=== PATIENT | female | born 1965 | race Caucasian/White ===

== ENCOUNTER → 2016-08-09 | Outpatient (CLI) | payer OTHER ==
--- NOTE | 2016-08-09 10:34 | CT ---
EXAMINATION TYPE: CT chest w con DATE OF EXAM: 08/09/2016 10:21 AM COMPARISON: Chest CT November 30, 2015. Older chest CT back to March 16, 2015. HISTORY: Pulmonary nodules CT DLP: 203.5 mGycm. Automated Exposure Control for Dose Reduction was Utilized. TECHNIQUE: CT scan of the thorax is performed following with IV Contrast, patient injected with 100 ml mL of Omnipaque 300. FINDINGS: LUNGS: There is background of mild underlying emphysematous change redemonstrated. There is no pleura l effusion or pneumothorax seen bilaterally. No concerning new parenchymal nodule or mass is present bilaterally. There is stable 7 x 4 mm groundglass nodule right midlung anteriorly on axial image 38. Smaller nodules seen on prior studies are not clearly identified on current study. No suspicious nodu le on original study right midlung now shows residual linear scarlike opacity on axial image 26 with continued diminished prominence from prior exams. MEDIASTINUM: There are no greater than 1 cm hilar or mediastinal lymph nodes. No pericardial effusi on is seen. There is 4 vessel origin from aortic arch which is normal variant. OTHER: There is 1.7 cm splenule in the inferior splenic hilum on axial image 57. IMPRESSION: Mild emphysematous change with no new or growing nodules identified. Findings are almost certainly postinflammatory in etiology given stability since February 2015.
== END | disposition home or self-care (01) ==
LOC: RADCTMAIN 09:52
PROVIDERS: ATTEND Internal Medicine Critical Care Medicine
DX: J43.9 Emphysema, unspecified (principal); R91.8 Other nonspecific abnormal finding of lung field; Z88.2 Allergy status to sulfonamides
CPT/HCPCS: 71260; Q9967

== ENCOUNTER → 2017-01-30 | Outpatient (CLI) | payer OTHER ==
--- NOTE | 2017-01-30 14:02 | BD ---
EXAMINATION TYPE: MG DEXA axial skeleton. DATE OF EXAM: 01/30/2017 CLINICAL HISTORY: Height: 63 inches Weight: 146 pounds FRAX RISK QUESTIONS: Alcohol (3 or more units per day): no Family History (Parent hip fracture): no Glucocorticoids (More than 3mos): no (Ex: prednisone, prednisolone, methylprednisolone, dexamethasone, and hydrocortisone). History of Fracture in Adulthood: no Secondary Osteoporosis: 1. Type 1 Diabetes: no 2. Hyperthyroidism: unsure 3. Menopause before 45: no 4. Malnutrition: no 5. Chronic liver disease: no Rheumatoid Arthritis: no Current Tobacco Use: yes RISK FACTORS HISTORY OF: Family History of Osteoporosis: no, mother has osteopenia Active: yes Diet low in dairy products/other sources of calcium: no Postmenopausal woman: yes Take estrogen and/or progesterone medications: no Lost more than 2 inches in height since high school: no Frequent falls: no Poor Health: no Hyperparathyroidism: no Adrenal Insufficiency: no MEDICATIONS: Prednisone or other steroids: no Thyroid Medications: yes Which medication: unsure How Long: about 3 months Osteoporosis Medications: no Additional Medications: calcium & Vitamin D Additional History: auto-immune thyroid disease EXAM MEASUREMENTS: Bone mineral densitometry was performed using the [employer] System. Bone mineral density as measured about the Lumbar spine is: ----- L1-L4(G/cm2): 1.101 T Score Values are as follows: ----- L2: -1.3 ----- L3: -0.8 ----- L4: -0.4 ----- L1-L4: -0.7 Bone mineral density has: Decreased -3.0% since study of: 09/16/2014 Bone mineral density about the R hip (g/cm2): 0.823 Bone mineral density about the L hip (g/cm2): 0.872 T Score values are as follows: -----R Neck: -1.5 -----L Neck: -1.2 -----R Total: -1.2 -----L Total: -0.6 Bone mineral density has: Decreased -3.1% since study of: 09/16/2014 IMPRESSION: Osteopenia (T Score between -2.5 and -1 as noted by T score values There is slightly increased risk of fracture and the patient may be considered for treatment. Re-Screen 2-5 years. NOTE: T-SCORE=SD OF THE YOUNG ADULT MEAN.
--- NOTE | 2017-02-01 07:25 | MM ---
Reason for exam: screening (asymptomatic). Last mammogram was performed 1 year and 3 months ago. History: Patient is postmenopausal. Family history of breast cancer in mother at age 38. Benign ultrasound-guided FNA biopsy of the right breast, March 15, 2007. Benign US right guided mammotome of the right breast, March 15, 2007. Benign US right core biopsy of the right breast, March 15, 2007. Benign US right guided mammotome of the right breast, September 15, 2005. Benign cyst aspiration of the right breast, August 05, 2004. Benign ultrasound-guided cyst aspiration of the right breast, August 05, 2004. Excisional biopsy of the right breast, 1995. Benign excisional biopsy of the right breast, 1993. Cyst aspiration of the right breast. Physical Findings: A clinical breast exam by your physician is recommended on an annual basis and results should be correlated with mammographic findings. MG 3D Screening Mammo W/Cad Bilateral CC and MLO view(s) were taken. Prior study comparison: October 25, 2015, bilateral MG 3d screening mammo w/cad. September 16, 2014, bilateral MG screening mammo w CAD. June 17, 2013, bilateral digital screening mammo w/CAD. There are scattered fibroglandular densities. Previous mammotome biopsy within the right breast x3. There is chronic nodularity bilaterally. A nodule in the central left breast is unchanged from 2016. ASSESSMENT: Benign, BI-RAD 2 RECOMMENDATION: Routine screening mammogram of both breasts in 1 year.
== END | disposition home or self-care (01) ==
LOC: RADMAMWWP 12:02
PROVIDERS: ATTEND Obstetrics & Gynecology
DX: Z12.31 Encounter for screening mammogram for malignant neoplasm of breast (principal); M85.80 Other specified disorders of bone density and structure, unspecified site
CPT/HCPCS: 77080; 77063; G0202

== ENCOUNTER → 2017-03-12 | Outpatient (CLI) | payer OTHER ==
--- NOTE | 2017-03-13 11:10 | NM ---
EXAMINATION TYPE: NM thyroid image w uptake DATE OF EXAM: 03/13/2017 COMPARISON: NONE HISTORY: 51-year-old female with hyperthyroidism TECHNIQUE: Thyroid iodine uptake is calculated and images performed after the oral administration of 318 uCi 1-123 Capsule. FINDINGS: There is normal but homogeneously increased distribution of activity throughout the gland. The 4 hour iodine uptake is calculated at 22.7% (normal range 8-14%). The 24-hour iodine uptake is calculated at 48.2% (normal range 15-35%). IMPRESSION: Diffuse increased uptake within the gland with moderately increased iodine uptake values. Correlate f or Graves' disease.
== END | disposition home or self-care (01) ==
LOC: RADNMMAIN 08:43
PROVIDERS: ATTEND Family Medicine
DX: E05.90 Thyrotoxicosis, unspecified without thyrotoxic crisis or storm (principal)
CPT/HCPCS: 78014; A9516

== ENCOUNTER → 2018-08-30 | Outpatient (CLI) | payer OTHER ==
--- NOTE | 2018-09-02 09:35 | MM ---
Reason for exam: screening (asymptomatic). Last mammogram was performed 1 year and 7 months ago. History: Patient is postmenopausal. Family history of breast cancer in mother at age 38. Benign ultrasound-guided FNA biopsy of the right breast, March 15, 2007. Benign US right guided mammotome of the right breast, March 15, 2007. Benign US right core biopsy of the right breast, March 15, 2007. Benign US right guided mammotome of the right breast, September 15, 2005. Benign cyst aspiration of the right breast, August 05, 2004. Benign ultrasound-guided cyst aspiration of the right breast, August 05, 2004. Excisional biopsy of the right breast, 1995. Benign excisional biopsy of the right breast, 1993. Cyst aspiration of the right breast. Physical Findings: A clinical breast exam by your physician is recommended on an annual basis and results should be correlated with mammographic findings. MG 3D Screening Mammo W/Cad Bilateral CC and MLO view(s) were taken. Prior study comparison: January 30, 2017, bilateral MG 3d screening mammo w/cad. October 25, 2015, bilateral MG 3d screening mammo w/cad. The breast tissue is heterogeneously dense. This may lower the sensitivity of mammography. Stable benign calcifications. Stable right sided nodularity. No significant changes when compared with prior studies. ASSESSMENT: Benign, BI-RAD 2 RECOMMENDATION: Routine screening mammogram of both breasts in 1 year.
== END ==
LOC: RADMAMWWP 14:40
PROVIDERS: ATTEND Obstetrics & Gynecology
DX: Z12.31 Encounter for screening mammogram for malignant neoplasm of breast (principal)
CPT/HCPCS: 77063; 77067

== ENCOUNTER 2018-11-18 15:06 | Inpatient (IN) | payer BC, OTHER ==
[2018-11-18] MEDS ORDERED: HEPARIN SODIUM,PORCINE 5,000 UNIT/ML 1 ML VIAL IV PRN (15:24)
[2018-11-18] MEDS ORDERED: NITROGLYCERIN SL TABS 0.4 MG TAB SUBLINGUAL PRN ×2 (15:24→16:29)
[2018-11-18] MEDS ORDERED: SODIUM CHLORIDE 0.9% 1,000 ML IV STA (15:24)
[2018-11-18] MEDS ORDERED: MORPHINE SULFATE 4 MG/ML SYRINGE IV PRN (15:24)
[2018-11-18] MEDS ORDERED: HEPARIN SODIUM,PORCINE 5,000 UNIT/ML 1 ML VIAL IV ONE (15:24)
[2018-11-18] MEDS ORDERED: ASPIRIN 81 MG PO STA (15:24)
[2018-11-18] MEDS ORDERED: ATORVASTATIN 80 MG TAB PO STA (15:29)
--- NOTE | 2018-11-18 15:29 | ED ---
Chest Pain HPI - General Chief Complaint: Chest Pain Stated Complaint: Shaking, legs going out Time Seen by Provider: 11/18/18 15:17 Source: patient, RN notes reviewed, old records reviewed Mode of arrival: ambulatory Limitations: no limitations - History of Present Illness Initial Comments: This is a 53-year-old female the ER for evaluation. Patient does say for evaluation significant chest pain anterior heaviness and shortness of breath> Starting about 15 minutes prior to arrival. Patient's complaining of chest pain. Patient is anterior chest pain heaviness, patient resents ER with similar complaints. History family history as well as smoker herself. MD Complaint: chest pain Pain Location: substernal, left chest Severity: moderate Severity scale (1-10): 6 Quality: heaviness Consistency: constant Improves With: nothing Worsens With: nothing Anginal Symptoms: nausea, diaphoresis, dyspnea, sense of impending doom Other Symptoms: palpitations Treatments Prior to Arrival: none - Related Data Allergies Allergy/AdvReac Type Severity Reaction Status Date / Time Sulfa (Sulfonamide Allergy Rash/Hives Verified 11/18/18 15:15 Antibiotics) Review of Systems ROS Statement: Those systems with pertinent positive or pertinent negative responses have been documented in the HPI. ROS Other: All systems not noted in ROS Statement are negative. EKG Findings - EKG Comments: EKG Findings:: EKG shows positive ST elevation OH, inferior Past Medical History Past Medical History: COPD Additional Past Medical History / Comment(s): graves History of Any Multi-Drug Resistant Organisms: None Reported Past Surgical History: Bladder Surgery, Hysterectomy, Tubal Ligation Past Psychological History: No Psychological Hx Reported Smoking Status: Current every day smoker Past Alcohol Use History: None Reported Past Drug Use History: None Reported General Exam Limitations: no limitations General appearance: alert, in no apparent distress, anxious, in distress Head exam: Present: atraumatic, normocephalic, normal inspection Eye exam: Present: normal appearance, PERRL, EOMI. Absent: scleral icterus, conjunctival injection, periorbital swelling ENT exam: Present: normal exam, mucous membranes moist Neck exam: Present: normal inspection. Absent: tenderness, meningismus, lymphadenopathy Respiratory exam: Present: normal lung sounds bilaterally. Absent: respiratory distress, wheezes, rales, rhonchi, stridor Cardiovascular Exam: Present: regular rate, normal rhythm, normal heart sounds. Absent: systolic murmur, diastolic murmur, rubs, gallop, clicks GI/Abdominal exam: Present: soft, normal bowel sounds. Absent: distended, ten derness, guarding, rebound, rigid Extremities exam: Present: normal inspection, full ROM, normal capillary refill. Absent: tenderness, pedal edema, joint swelling, calf tenderness Back exam: Present: normal inspection Neurological exam: Present: alert, oriented X3, CN II-XII intact Psychiatric exam: Present: normal affect, normal mood Skin exam: Present: warm, dry, intact, normal color. Absent: rash Course Vital Signs 11/18/18 15:11 Temperature 98.7 F Pulse Rate 68 Respiratory 18 Rate Blood Pressure 130/71 O2 Sat by Pulse 99 Oximetry - Reevaluation(s) Reevaluation #1: 11/18/18 15:27 Medical record is reviewed Reevaluation #2: 11/18/18 15:27 Attending Engineering Vice President page, evaluating patient emergency department Chest Pain MDM - MDM 50 female female the ER for evaluation history of family history of heart disease and stents, patient smoker, patient has positive STEMI and EKG will admit for cardiology evaluation Critical Care Time Critical Care Time: Yes Total Critical Care Time: 31 Disposition Clinical Impression: Chest pain, ST elevation myocardial infarction (STEMI) Disposition: ADMITTED IP TO THIS HOSP Condition: Serious Is patient prescribed a controlled substance at d/c from ED?: No Referrals: Joaquin Schwab DO [Primary Care Provider] - 1-2 days
[2018-11-18] MEDS ORDERED: HEPARIN SOD,PORK IN 0.45% NACL 25,000 UNIT in 0.45% NACL 1 250ML.BAG IV SCH (15:30)
[2018-11-18] MEDS ORDERED: LIDOCAINE 1% INJ 10MG/ML (20 ML MDV) ONE ×2 (15:32→15:54)
[2018-11-18] MEDS ORDERED: IV FLUID CONTINUATION 1,000 ML IV ONE (15:35)
[2018-11-18 15:42] LABS: Basophils % (A) 0 %; Eosinophils # (A) 0.1 k/uL (0-0.7); Eosinophils % (A) 1 %; HCT 41.1 % (34.0-46.0); HGB 13.5 gm/dL (11.4-16.0); Lymphocytes % (A) 12 %; MCH 29.4 pg (25.0-35.0); MCHC 32.9 g/dL (31.0-37.0); MCV 89.4 fL (80.0-100.0); Mean Platelet Volume 6.9; Monocytes # (A) 0.2 k/uL (0-1.0); Monocytes % (A) 3 %; Neutrophils % (A) 82 %; Platelet Count 245 k/uL (150-450); RDW 12.8 % (11.5-15.5); WBC 8.5 k/uL (3.8-10.6)
[2018-11-18] MEDS ORDERED: LIDOCAINE 1% INJ 10MG/ML (20 ML MDV) SQ ONE (15:47)
--- NOTE | 2018-11-18 15:48 | XR ---
EXAMINATION TYPE: XR chest 1V portable DATE OF EXAM: 11/18/2018 Comparison: 03/04/2018 Clinical History: 53-year-old female with chest pain Findings: Heart is normal size. Aorta and pulmonary vasculature within normal limits. Hazy lower lung densities related to overlying soft tissue. No consolidation or pleural effusion. Impression: No definite acute cardiopulmonary process.
[2018-11-18 15:52] LABS: ALT 11 U/L (9-52); AST 20 U/L (14-36); African American GFR (CKD) >90 (>60 ml/min/1.73 sqM); Albumin 4.4 g/dL (3.5-5.0); Alkaline Phosphatase 125 U/L (38-126); Anion Gap 10 mmol/L; Blood Urea Nitrogen 10 mg/dL (7-17); Calcium 9.7 mg/dL (8.4-10.2); Carbon Dioxide 23 mmol/L (22-30); Chloride 107 mmol/L (98-107); Glucose 114 mg/dL (74-99); INR 0.9 (<1.2); Partial Thromboplastin Time 25.2 sec (22.0-30.0); Potassium 3.6 mmol/L (3.5-5.1); Prothrombin Time 9.7 sec (9.0-12.0); Sodium 140 mmol/L (137-145); Total Bilirubin 0.4 mg/dL (0.2-1.3); Total Protein 7.3 g/dL (6.3-8.2)
[2018-11-18 15:55] LABS: Creatine Kinase 34 U/L (30-135)
[2018-11-18] MEDS ORDERED: BIVALIRUDIN BOLUS 250 MG/50 ML IV ONE (16:00)
--- NOTE | 2018-11-18 16:01 | P.CRDCN ---
History of Present Illness Consult date: 11/18/18 Requesting physician: Joaquin Schwab Reason for Consult (text): STEMI Chief complaint: Chest pain History of present illness: This is a 53-year-old female with history of nicotine dependence, she denies any history of hypertension, no diabetes, no hyperlipidemia, no family history of premature coronary artery disease. She presents to the emergency room with symptoms of midsternal chest pressure and heaviness with significant of discomfort in her right arm, she was also mildly diaphoretic and short of breath. According to the patient, for the past several days she's been comp laining of a discomfort underneath her right breast area. EKG performed on presentation here showed ST elevation in the inferior leads with T wave inversion noted in the lateral leads. Her initial blood pressure on presentation here was 130/70 with a heart rate in the 60s, 99% on room air. Subsequent blood pressure 80/60. Patient was given a heparin bolus, aspirin, Lipitor, IV saline fluid bolus initiated. Patient was advised to undergo emergent cardiac catheterization, the risks and the benefits were explained to the patient and her daughter in detail, and be performed by Dr. Banegas. Past Medical History Past Medical History: COPD Additional Past Medical History / Comment(s): graves History of Any Multi-Drug Resistant Organisms: None Reported Past Surgical History: Bladder Surgery, Hysterectomy, Tubal Ligation Past Psychological History: No Psychological Hx Reported Smoking Status: Current every day smoker Past Alcohol Use History: None Reported Past Drug Use History: None Reported Medications and Allergies Allergies Allergy/AdvReac Type Severity Reaction Status Date / Time Sulfa (Sulfonamide Allergy Rash/Hives Verified 11/18/18 15:15 Antibiotics) Physical Exam Vitals: Vital Signs Temp Pulse Resp BP Pulse Ox 11/18/18 15:32 72 18 80/65 11/18/18 15:11 98.7 F 68 18 130/71 99 Intake and Output 11/18/18 11/18/18 11/18/18 06:59 14:59 22:59 Other: Weight 71.668 kg PHYSICAL EXAMINATION: GENERAL: 53-year-old female complaining of a midsternal and right arm chest discomfort at the time of my examination HEENT: Head is atraumatic, normocephalic. Pupils equal, round. Sclera anicter ic. Conjunctiva are clear. Mucous membranes of the mouth are moist. Neck is supple. There is no elevated jugular venous pressure. No carotid bruit is heard. HEART EXAMINATION: Heart S1, S2 normal. No murmur or gallop heard. CHEST EXAMINATION: Lungs are clear to auscultation and precussion. No chest wall tenderness is noted on palpation or with deep breathing. ABDOMEN: Soft, nontender. Bowel sounds are heard. No organomegaly noted. EXTREMITIES: 2+ peripheral pulses with no evidence of peripheral edema and no calf tenderness noted. NEUROLOGIC patient is awake, alert and oriented 3 . . Results 11/18/18 15:16 11/18/18 15:16 Cardiac Enzymes 11/18/18 Range/Units 15:16 AST 20 (14-36) U/L Coagulation 11/18/18 Range/Units 15:16 PT 9.7 (9.0-12.0) sec APTT 25.2 (22.0-30.0) sec CBC 11/18/18 Range/Units 15:16 WBC 8.5 (3.8-10.6) k/uL RBC 4.60 (3.80-5.40) m/uL Hgb 13.5 (11.4-16.0) gm/dL Hct 41.1 (34.0-46.0) % Plt Count 245 (150-450) k/uL Comprehensive Metabolic Panel 11/18/18 Range/Units 15:16 Sodium 140 (137-145) mmol/L Potassium 3.6 (3.5-5.1) mmol/L Chloride 107 (98-107) mmol/L Carbon Dioxide 23 (22-30) mmol/L BUN 10 (7-17) mg/dL Creatinine 0.74 (0.52-1.04) mg/dL Glucose 114 H (74-99) mg/dL Calcium 9.7 (8.4-10.2) mg/dL AST 20 (14-36) U/L ALT 11 (9-52) U/L Alkaline Phosphatase 125 (38-126) U/L Total Protein 7.3 (6.3-8.2) g/dL Albumin 4.4 (3.5-5.0) g/dL Current Medications Generic Name Dose Route Start Last Admin Trade Name Freq PRN Reason Stop Dose Admin Aspirin 325 mg 11/19/18 09:00 Aspirin PO DAILY JG Heparin Sodium (Porcine) 0 unit 11/18/18 15:24 Heparin IV Q6HR PRN Low PTT Protocol Heparin Sodium/Sodium Chloride 250 mls @ 8.6 mls/hr 11/18/18 15:30 25,000 unit/ Sodium Chloride IV .Q24H JG Protocol 12 UNITS/KG/HR Sodium Chloride 1,000 mls @ 100 mls/hr 11/18/18 15:24 Saline 0.9% IV 11/19/18 01:23 .Q10H STA Metoprolol Tartrate 25 mg 11/18/18 21:00 Lopressor PO BID JG Morphine Sulfate 4 mg 11/18/18 15:24 Morphine Sulfate (Inj) IV Q6HR PRN Chest Pain Nitroglycerin 0.4 mg 11/18/18 15:24 Nitrostat SUBLINGUAL Q5M PRN Chest Pain Intake and Output 11/18/18 11/18/18 11/18/18 06:59 14:59 22:59 Other: Weight 71.668 kg Patient Weight 11/19/18 06:59 Weight 71.668 kg 11/18/18 15:16 11/18/18 15:16 EKG Interpretations (text) EKG shows normal sinus rhythm with ST elevation in the inferior leads and T-wave inversion in the lateral leads. Assessment and Plan Plan: Assessment and plan #[address] elevation myocardial infarction #2 nicotine dependence Plan Patient was advised to emergently undergo cardiac catheterization, the risks and the benefits were explained to the patient in detail and she was willing to proceed. This will be performed by Dr. Muñoz. Further recommendations will be based on these findings and the patient's clinical course. DNP note has been reviewed, I agree with a documented findings and plan of care. Patient was seen and examined.
[2018-11-18] MEDS ORDERED: BIVALIRUDIN 250 MG in SODIUM CHLORIDE 0.9% 50 ML IV ONE (16:02)
[2018-11-18 16:08] LABS: Creatine Kinase MB 0.7 ng/mL (0.0-2.4); Troponin I <0.012 ng/mL (0.000-0.034)
[2018-11-18] MEDS ORDERED: NITROGLYCERIN 1000MCG/10ML SYRINGE INTRACORON ONE (16:17)
[2018-11-18] MEDS ORDERED: CLOPIDOGREL 75 MG TAB ONE (16:22)
[2018-11-18] MEDS ORDERED: RX INFO: IV CONTRAST WAS GIVEN 1 EACH MISC MISCELLANE PRN (16:29)
[2018-11-18] MEDS ORDERED: ATROPINE SULFATE 0.1 MG/ML 10ML SYRINGE IV PRN (16:29)
[2018-11-18] MEDS ORDERED: MAG HYDROX/AL HYDROX/SIMETH 30 ML CUP PO PRN (16:29)
[2018-11-18] MEDS ORDERED: CLOPIDOGREL 75 MG TAB PO ONE (16:30)
[2018-11-18] MEDS ORDERED: IOPAMIDOL-370 125ML BTL INJ ONE (16:39)
--- NOTE | 2018-11-18 16:49 | CC ---
CARDIAC CATHETERIZATION REPORT INDICATION: Acute inferior wall myocardial infarction. PROCEDURE NOTE: After obtaining informed consent, left heart catheterization and coronary angiogram were performed via the right femoral artery using standard Radhames catheters. The patient was quite hypotensive prior to cardiac cath. We gave her IV fluids and we decided to start her on IV Levophed. The patient tolerated the procedure well otherwise. Total sedation time was 70 minutes. FINDINGS: HEMODYNAMICS: Left ventricular end-diastolic pressure is 18 mm. There is no significant gradient across the aortic valve. LEFT VENTRICULOGRAM: Left ventriculogram is not performed. ANGIOGRAPHIC DATA: LEFT MAIN CORONARY ARTERY: Left main coronary artery is a normal-sized vessel and is free of stenosis. Divides into left anterior descending coronary artery and circumflex coronary artery. LAD shows a mild to moderate atherosclerotic plaque in its midportion. CIRCUMFLEX CORONARY ARTERY is a nondominant vessel that shows atherosclerotic plaque without focal significant stenotic lesions. Right coronary artery is a large dominant vessel that in its distal portion shows a focal area of 90% stenosis which is probably the vessel responsible for myocardial infarction. CONCLUSIONS: 90% stenosis involving the distal right coronary artery, mild to moderate atherosclerotic plaque involving circumflex coronary artery and mid LAD. PLAN: Patient will undergo angioplasty of the right coronary artery. MMODL / IJN: [id number] /
[2018-11-18 17:09] LABS: Glucose,Whole Blood 120 mg/dL (75-99)
[2018-11-18] MEDS: PANTOPRAZOLE 40 MG TABLET PO SCH (18:41)
[2018-11-18] MEDS: SODIUM CHLORIDE 0.9% 1,000 ML IV SCH (18:42)
[2018-11-18] MEDS: LORATADINE 10 MG TAB PO SCH (20:47)
[2018-11-18] MEDS: METOPROLOL TARTRATE 12.5 MG TAB PO SCH (20:47)
[2018-11-18] MEDS ORDERED: METOPROLOL TARTRATE 25 MG TAB PO SCH (21:00)
[2018-11-18] MEDS: ZOLPIDEM 5 MG TAB PO PRN (21:51)
--- NOTE | 2018-11-18 23:24 | PTCA ---
PERCUTANEOUSTRANS CORORONARY ANGIOGRAPHY DATE OF SERVICE: 11/18/2018 PROCEDURE: PTCA and stenting of distal RCA performed in the setting of an acute inferior ST- elevation OH with a drug-eluting stent. Reperfusion accomplished in 67 minutes. PROCEDURE PERFORMED BY: Dr. Kayy Lowery. SEDATION: Moderate conscious sedation time was 25 minutes. Procedure summary. CLINICAL INFORMATION: Mrs. Princess Aguilar is a 53-year-old lady with a family history of CAD and smoking, who does not take any regular medications, presented with symptoms of chest pain and inferior ST elevation was seen by Dr. Banegas who performed a cardiac cath which revealed that there was an 80% stenosis involving the distal RCA with haziness suggestive of thrombus. The left system was free of significant disease. RCA was a dominant vessel. She was advised intervention that was performed in the same setting. PROCEDURE NOTE: The existing 6-Latvian introducer in the right femoral artery was used to perform procedure. A standard right Radhames guide catheter was used to cannulate the right coronary artery. A run-through wire was used to cross the lesion wire was kept distally. Without predilatation, a 15 mm long 2.75 caliber Xience stent was deployed at 14 atmospheres patient had chest discomfort more prominent inferior ST elevation. Excellent angiographic result was achieved without complication. The patient received 600 mg of Plavix. She also received Angiomax bolus and infusion. Excellent angiographic result without complication was achieved. The sheath was taken out and Angio-Seal device used to secure hemostasis. The patient was sent to the room in stable condition. The findings and results were discussed with the patient and several family members. MMODL / IJN: [id number] /
[2018-11-19] MEDS: SODIUM CHLORIDE 0.9% 1,000 ML IV SCH (04:33)
[2018-11-19 04:51] LABS: Basophils % (A) 0 %; Eosinophils % (A) 0 %; HCT 38.4 % (34.0-46.0); HGB 12.4 gm/dL (11.4-16.0); Lymphocytes % (A) 12 %; MCH 29.2 pg (25.0-35.0); MCHC 32.3 g/dL (31.0-37.0); MCV 90.6 fL (80.0-100.0); Mean Platelet Volume 6.6; Monocytes # (A) 0.3 k/uL (0-1.0); Monocytes % (A) 4 %; Neutrophils # (A) 6.6 k/uL (1.3-7.7); Neutrophils % (A) 83 %; Platelet Count 209 k/uL (150-450); RBC 4.24 m/uL (3.80-5.40); WBC 7.9 k/uL (3.8-10.6)
[2018-11-19 04:58] LABS: African American GFR (CKD) >90 (>60 ml/min/1.73 sqM); Anion Gap 8 mmol/L; Blood Urea Nitrogen 6 mg/dL (7-17); Calcium 8.7 mg/dL (8.4-10.2); Carbon Dioxide 20 mmol/L (22-30); Chloride 110 mmol/L (98-107); Cholesterol 193 mg/dL (<200); Glucose 97 mg/dL (74-99); HDL Cholesterol 36 mg/dL (40-60); LDL Cholesterol,Calculated 121 mg/dL (0-99); Potassium 3.7 mmol/L (3.5-5.1); Sodium 138 mmol/L (137-145); Triglycerides 179 mg/dL (<150)
[2018-11-19] MEDS ORDERED: SODIUM CHLORIDE 0.9% 1,000 ML IV SCH (05:00)
[2018-11-19] MEDS: ASPIRIN 81 MG PO SCH (08:29)
[2018-11-19] MEDS: PANTOPRAZOLE 40 MG TABLET PO SCH (08:29)
[2018-11-19] MEDS: CLOPIDOGREL 75 MG TAB PO SCH (08:31)
[2018-11-19] MEDS: METOPROLOL TARTRATE 12.5 MG TAB PO SCH ×2 (08:31→22:20)
[2018-11-19] MEDS: LORATADINE 10 MG TAB PO SCH (08:31)
[2018-11-19] MEDS ORDERED: ASPIRIN 325 MG TAB PO SCH (09:00)
[2018-11-19 09:56] VITALS: BMI 29.8
[2018-11-19] MEDS: ACETAMINOPHEN TAB 325 MG TAB PO PRN ×2 (10:08→15:05)
--- NOTE | 2018-11-19 11:53 | PN ---
PROGRESS NOTE A 53-year-old lady is admitted to hospital yesterday with acute inferior wall myocardial infarction. Underwent emergent cardiac catheterization and angioplasty of [place] right coronary artery. This morning, she is doing fine and is free of symptoms. She is on aspirin, Lipitor, Plavix, Lopressor, had an echocardiogram, but the results are pending. On exam, comfortable at rest. Vital signs are stable. Chest exam reveals good air entry bilaterally. Heart exam reveals first and second heart sounds. No gallop. Abdomen is soft. Exam of extremities did not reveal any edema. Peripheral pulses are felt. SALES STRATEGY MANAGER exam did not reveal focal neurological deficits. Labs show that the troponins are 2.3 and 3. LDL cholesterol is 120, hemoglobin is 12.4. ASSESSMENT: Acute inferior wall myocardial infarction, status post catheterization and angioplasty. Patient is doing well. She will be transferred out of ICU and hopefully home on . MMODL / IJN: [id number] /
--- NOTE | 2018-11-19 12:16 | P.HPIM ---
History of Present Illness H&P Date: 11/19/18 Chief Complaint: ST elevation CT This is a 53-year-old female one of Dr. 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 felt shaky with increased upper and lower extremity shakiness her daughter came and picked her up to the hospital by the ventricle to the hospital she developed to have significant chest pain radiating to the back associated with increased shortness of breath, patient was found to have an ST elevation CT she was taken to the clinical laboratory manager and underwent left heart catheterization with PCI of the RCA with a long stent to the distal RCA, subsequently patient was admitted to the intensive care unit for overnight and she was seen in the ICU feeling better denies any chest pain or shortness breath she has some right upper quadrant abdominal pain associated with nausea but no vomiting she was questioning whether or not she had a gallbladder stones. Review of Systems Constitutional: Denies anorexia, Denies chronic headaches, Denies lethargy, Denies malaise, Denies night sweats Eyes: denies blurred vision, denies bulging eye, denies decreased vision, denies diplopia Ears: deny: decreased hearing Ears, nose, mouth and throat: Denies dental pain, Denies dysphagia, Denies neck lump, Denies sore throat, Denies vertigo Cardiovascular: Reports chest pain, Reports dyspnea on exertion, Denies decreased exercise tolerance, Denies irregular heart beat, Denies lightheadedness, Denies orthopnea, Denies palpitations, Denies phlebitis, Denies shortness of breath, Denies syncope Respiratory: Denies as per HPI, Denies congestion, Denies cough, Denies cough with sputum, Denies home oxygen, Denies sleep apnea, Denies snoring, Denies wheezing Gastrointestinal: Denies abdominal pain, Denies bloating, Denies BRBPR, Denies excessive gas, Denies heartburn, Denies hematemesis, Denies melena, Denies nausea Genitourinary: Denies dysuria, Denies nocturia Musculoskeletal: Denies myalgias Musculoskeletal: absent: ankle pain, ankle stiffness, ankle swelling, elbow pain, elbow stiffness, elbow swelling, foot pain, foot stiffness, foot swelling, hand pain, hand stiffness, hand swelling, hip pain, hip stiffness, hip swelling, knee pain, knee stiffness, knee swelling, shoulder pain, shoulder stiffness, shoulder swelling, wrist pain, wrist stiffness, wrist swelling Integumentary: Denies pruritus, Denies rash Neurological: Denies numbness, Denies weakness Psychiatric: Denies anxiety, Denies depression Endocrine: Denies fatigue, Denies weight change Past Medical History Past Medical History: COPD, GERD/Reflux Additional Past Medical History / Comment(s): graves, pulmonary nodule. History of Any Multi-Drug Resistant Organisms: None Reported Past Surgical History: Bladder Surgery, Hysterectomy, Tubal Ligation Past Anesthesia/Blood Transfusion Reactions: No Reported Reaction Past Psychological History: No Psychological Hx Reported Smoking Status: Current every day smoker (Patient smokes about half pack every day since she was a teenager.) Past Alcohol Use History: None Reported Past Drug Use History: None Reported - Past Family History Mother Family Medical History: Coronary Artery Disease (CAD) (Mother 74-year-old with history of CAD post-stent placement.), Myocardial Infarction (CT) Father Family Medical History: Coronary Artery Disease (CAD) (Father has a history of CAD with stent placement as well.), Myocardial Infarction (CT) Brother(s) Family Medical History: No Reported History (Patient has one brother no major medical problems.) Daughter(s) Family Medical History: No Reported History (One daughter no major medical problems.) Son(s) Family Medical History: No Reported History (Patient has one son no major medica l problems.) Medications and Allergies Home Medications Medication Instructions Recorded Confirmed Type Cetirizine HCl [Zyrtec] 10 mg PO DAILY PRN 11/18/18 11/18/18 History Ibuprofen [Motrin] 800 mg PO TID PRN 11/18/18 11/18/18 History Omeprazole [PriLOSEC] 20 mg PO DAILY PRN 11/18/18 11/18/18 History Allergies Allergy/AdvReac Type Severity Reaction Status Date / Time Sulfa (Sulfonamide Allergy Rash/Hives Verified 11/18/18 19:10 Antibiotics) Physical Exam Vitals: Vital Signs Temp Pulse Resp BP BP Pulse Ox 11/19/18 10:00 73 26 H 96 11/19/18 09:00 79 22 122/69 95 11/19/18 08:00 98.7 F 85 25 H 95 11/19/18 07:00 98 23 126/69 95 11/19/18 06:00 96 18 115/71 95 11/19/18 05:00 93 20 122/76 94 L 11/19/18 04:00 99.9 F H 93 21 124/70 94 L 11/19/18 03:30 88 22 95 11/19/18 03:00 93 16 107/51 95 11/19/18 02:30 87 26 H 95 11/19/18 02:00 85 16 119/67 94 L 11/19/18 01:30 85 20 94 L 11/19/18 01:00 79 21 119/67 93 L 11/19/18 00:30 78 21 94 L 11/19/18 00:16 77 17 95 11/19/18 00:00 98.5 F 77 20 122/58 94 L 11/18/18 23:30 86 11 L 97 11/18/18 23:00 80 14 116/54 94 L 11/18/18 22:30 83 18 96 11/18/18 22:00 78 23 116/54 96 11/18/18 21:30 85 20 96 11/18/18 21:00 90 16 124/73 96 11/18/18 20:31 92 12 108/63 96 11/18/18 20:01 98.5 F 86 16 116/70 96 11/18/18 19:00 20 139/73 99 11/18/18 18:00 18 119/71 98 11/18/18 17:00 107 H 23 119/81 100 11/18/18 16:50 101.0 F H 104 H 18 100 11/18/18 15:32 72 18 80/65 11/18/18 15:11 98.7 F 68 18 130/71 99 Intake and Output 11/18/18 11/19/18 11/19/18 22:59 06:59 14:59 Intake Total 1270.32 1050 300 Balance 1270.32 1050 300 Intake: IV 1020.32 1050 300 Sodium Chloride 0.9% 1, 150 000 ml @ 100 mls/hr IV . Q10H [facility] Rx#:[id number] Sodium Chloride 0.9% 1, 750 900 000 ml @ 150 mls/hr IV . [id number] [facility] Rx#:[id number] Sodium Chloride 0.9% 1, 150 300 000 ml @ 75 mls/hr IV . [id number] [facility] Rx#:[id number] Oral 250 Other: Voiding Method Bedpan Toilet Toilet # Voids 1 1 1 Weight 71.668 kg 76.5 kg 76.5 kg - Constitutional General appearance: no acute distress, thin - EENT Eyes: anicteric sclerae, EOMI, PERRLA, no ptosis, no scleral icterus, normal a ppearance ENT: hearing grossly normal, NA/AT, normal oropharynx, no thrush Ears: bilateral: normal - Neck Neck: no lymphadenopathy, normal ROM, no rigidity, no stridor, no thyromegaly Carotids: bilateral: upstroke normal Thyroid: bilateral: normal size - Respiratory Respiratory: bilateral: diminished, negative: dullness, rales, rhonchi, wheezing, prolonged expiration, prolonged inspiration - Cardiovascular Rhythm: regular Heart sounds: normal: S1, S2 Abnormal Heart Sounds: no systolic murmur, no S3 Gallop - Gastrointestinal General gastrointestinal: normal bowel sounds, soft, no splenomegaly, no tenderness, no umbilical hernia, no ventral hernia - Integumentary Integumentary: normal, normal turgor - Neurologic Neurologic: CNII-XII intact - Musculoskeletal Musculoskeletal: gait normal, strength equal bilaterally - Psychiatric Psychiatric: A&O x's 3, appropriate affect, intact judgment & insight Results CBC & Chem 7: 11/19/18 04:25 11/19/18 04:25 Labs: Abnormal Lab Results - Last 24 Hours (Table) 11/18/18 11/18/18 11/18/18 Range/Units 15:16 16:56 19:43 Chloride (98-107) mmol/L Carbon Dioxide (22-30) mmol/L BUN (7-17) mg/dL Glucose 114 H (74-99) mg/dL POC Glucose (mg/dL) 120 H (75-99) mg/dL Troponin I 2.350 H* (0.000-0.034) ng/mL Triglycerides (<150) mg/dL LDL Cholesterol, Calc (0-99) mg/dL HDL Cholesterol (40-60) mg/dL 11/19/18 11/19/18 Range/Units 04:25 04:25 Chloride 110 H (98-107) mmol/L Carbon Dioxide 20 L (22-30) mmol/L BUN 6 L (7-17) mg/dL Glucose (74-99) mg/dL POC Glucose (mg/dL) (75-99) mg/dL Troponin I 3.030 H* (0.000-0.034) ng/mL Triglycerides 179 H (<150) mg/dL LDL Cholesterol, Calc 121 H (0-99) mg/dL HDL Cholesterol 36 L (40-60) mg/dL Thrombosis Risk Factor Assmnt - DVT/VTE Prophylaxis DVT/VTE Prophylaxis: Pharmacologic Prophylaxis ordered, Mechanical Prophylaxis ordered - Choose All That Apply Each Factor Represents 1 point: Acute CT, Age 41-60 years Thrombosis Risk Factor Assessment Total Risk Factor Score: 2 Thrombosis Risk Factor Assessment Level: Low Risk Assessment and Plan Assessment: Assessment and plan: 1. Inferior wall ST elevation CT status post left heart catheterization with PCI of the RCA with long Xience stent. Maintain the patient on aspirin 81 mg once every day, Plavix 75 mg once every day, metoprolol 12.5 mg orally twice every day Lipitor 80 mg orally once every day. Smoking cessation and counseling an increased risk of stent restenosis, patient stated that she has quit smoking at this point. 2. GERD. Continue patient on Protonix 40 mg once every day. 3. Graves' disease. Stable. 4. Right lung nodule. Patient had a computed tomography scan in February 2018. 5. Tobacco use and dependence. Smoking cessation and counseling an increased risk of CAD, CVA, and malignancy. 6. DVT prophylaxis. Heparin 5000 units subcutaneously every 8 hours. 7. GI prophylaxis. Continue PPI. 8. Admit to inpatient. Estimated length of stay 2 midnights.
--- NOTE | 2018-11-19 13:58 | ECHOF ---
Referral Reason:INF ME, RCA PCI MEASUREMENTS -------- HEIGHT: 160.0 cm WEIGHT: 71.7 kg BP: 115/71 RVIDd: 3.0 cm (< 3.3) IVSd: 1.1 cm (0.6 - 1.1) LVIDd: 5.1 cm (3.9 - 5.3) LVPWd: 1.2 cm (0.6 - 1.1) IVSs: 1.4 cm LVIDs: 3.3 cm LVPWs: 1.5 cm LAESV Index (A-L): 16.92 ml/m Ao Diam: 3.2 cm (2.0 - 3.7) AV Cusp: 1.6 cm (1.5 - 2.6) LA Diam: 3.0 cm (2.7 - 3.8) MV EXCURSION: 20.824 mm (> 18.000) MV EF SLOPE: 169 mm/s (70 - 150) EPSS: 0.9 cm MV E Ronak: 0.89 m/s MV DecT: 149 ms MV A Ronak: 1.18 m/s MV E/A Ratio: 0.75 RAP: 5.00 mmHg RVSP: 24.33 mmHg FINDINGS -------- Sinus rhythm. This was a technically adequate study. The left ventricular size is normal. There is borderline concentric left ventricular hypertrophy. Overall left ventricular systolic function is low-normal with, an EF between 50 - 55 %. The diasto lic filling pattern indicates impaired relaxation 10.19. Basal inferior LV wall motion is hypokinet ic. The right ventricle is normal in size. Normal LA size by volume 22+/-6 ml/m2. The right atrial size is normal. Interatrial and interventricular septum intact. The aortic valve is trileaflet and appears structurally normal. There is no evidence of aortic regu rgitation. There is no evidence of aortic stenosis. There is trace mitral regurgitation. Mild tricuspid regurgitation present. There is no evidence of pulmonary hypertension. The right v entricular systolic pressure, as measured by Doppler, is 24.33mmHg. There is no pulmonic regurgitation present. The aortic root size is normal. Normal inferior vena cava with normal inspiratory collapse consistent with estimated right atrial pre ssure of 5 mmHg. There is no pericardial effusion. CONCLUSIONS -------- 1. Sinus rhythm. 2. This was a technically adequate study. 3. The left ventricular size is normal. 4. There is borderline concentric left ventricular hypertrophy. 5. The diastolic filling pattern indicates impaired relaxation 10.19.. 6. The right ventricle is normal in size. 7. Normal LA size by volume 22+/-6 ml/m2. 8. The right atrial size is normal. 9. Interatrial and interventricular septum intact. 10. The aortic valve is trileaflet and appears structurally normal. 11. There is no evidence of aortic regurgitation. 12. There is no evidence of aortic stenosis. 13. There is trace mitral regurgitation. 14. Mild tricuspid regurgitation present. 15. There is no evidence of pulmonary hypertension. 16. The right ventricular systolic pressure, as measured by Doppler, is 24.33mmHg. 17. There is no pulmonic regurgitation present. 18. The aortic root size is normal. 19. Normal inferior vena cava with normal inspiratory collapse consistent with estimated right atrial pressure of 5 mmHg. 20. There is no pericardial effusion. TITLE INSPECTOR: Estela Hall RDCS
[2018-11-19] MEDS ORDERED: HYDROcodone/APAP 5-325MG 1 EACH TAB PO STA (22:07)
[2018-11-19] MEDS: ATORVASTATIN 80 MG TAB PO SCH (22:19)
[2018-11-20 05:24] LABS: Mean Platelet Volume 7.3; Platelet Count 156 k/uL (150-450)
[2018-11-20] MEDS: PANTOPRAZOLE 40 MG TABLET PO SCH (06:59)
[2018-11-20] MEDS: ACETAMINOPHEN TAB 325 MG TAB PO PRN ×2 (07:00→19:26)
[2018-11-20] MEDS: METOPROLOL TARTRATE 12.5 MG TAB PO SCH ×2 (09:02→20:03)
[2018-11-20] MEDS: LORATADINE 10 MG TAB PO SCH (09:02)
[2018-11-20] MEDS: ASPIRIN 81 MG PO SCH (09:02)
[2018-11-20] MEDS: CLOPIDOGREL 75 MG TAB PO SCH (09:03)
--- NOTE | 2018-11-20 11:07 | PN ---
PROGRESS NOTE Princess is a 53-year-old lady who was admitted to hospital with acute inferior wall myocardial infarction. Underwent cardiac catheterization and angioplasty of right coronary artery. Her echocardiogram shows normal LV function with mild hypokinesis of the basal inferior wall. She is currently on aspirin, Plavix, Lipitor, Lopressor, Protonix, and Ambien. This morning she is doing well and is free of symptoms. PHYSICAL EXAMINATION: On exam, comfortable at rest. Vital signs are stable. Chest is clear to auscultation. Heart exam reveals first and second heart sounds. No gallop. Examination of extremities did not reveal any edema. Peripheral pulses are felt. ASSESSMENT: Acute inferior wall myocardial infarction, status post catheterization and angioplasty of right coronary artery. The patient is doing well. We should be able to discharge her home tomorrow. MMODL / IJN: [id number] /
--- NOTE | 2018-11-20 12:02 | P.PN ---
Subjective Progress Note Date: 11/20/18 This is a 53-year-old female one of Dr. 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 with increased upper and lower extremity shakiness her daughter came and picked her up to the hospital by the ventricle to the hospital she developed to have significant chest pain radiating to the back associated with increased shortness of breath, patient was found to have an ST elevation [place] she was taken to the microbiology laboratory manager and underwent left heart catheterization with PCI of the RCA with a long stent to the distal RCA, subsequently patient was admitted to the intensive care unit for overnight and she was seen in the ICU feeling better denies any chest pain or shortness breath she has some right upper quadrant abdominal pain associated with nausea but no vomiting she was questioning whether or not she had a gallbladder stones. 11/20: Echocardiogram reveals EF of 50-55%, borderline concentric left ventricular hypertrophy, trace mitral regurgitation, mild tricuspid regurgitation, no pulmonary hypertension.patient has been afebrile, heart rate 76, blood pressure 94/53 pulse ox is 98% on room air. Triglycerides 179, cholesterol 193, LDL 121, HDL 36. Patient denies chest pain, shortness of breath. No events overnight. She has had a bowel movement. No new complaints. Plan for discharge home tomorrow. Objective - Vital Signs Vital signs: Vital Signs Temp 98.3 F 11/20/18 04:00 Pulse 76 11/20/18 04:00 Resp 16 11/20/18 04:00 BP 94/53 11/20/18 04:00 Pulse Ox 98 11/20/18 04:00 Intake & Output 11/19/18 11/20/18 11/20/18 18:59 06:59 18:59 Intake Total 300 320 118 Balance 300 320 118 Weight 76.5 kg 71.8 kg Intake: IV 300 Sodium Chloride 0.9% 1, 300 000 ml @ 75 mls/hr IV . [id number] [facility] Rx#:[id number] Oral 320 118 Other: Voiding Method Toilet Toilet # Voids 1 2 - Exam Review of Systems Constitutional: Denies anorexia, Denies chronic headaches, Denies lethargy, Denies malaise, Denies night sweats Eyes: denies blurred vision, denies bulging eye, denies decreased vision, denies diplopia Ears: deny: decreased hearing Ears, nose, mouth and throat: Denies dental pain, Denies dysphagia, Denies neck lump, Denies sore throat, Denies vertigo Cardiovascular: denies chest pain, denies dyspnea on exertion, Denies decreased exercise tolerance, Denies irregular heart beat, Denies lightheadedness, Denies orthopnea, Denies palpitations, Denies phlebitis, Denies shortness of breath, Denies syncope Respiratory: Denies as per HPI, Denies congestion, Denies cough, Denies cough with sputum, Denies home oxygen, Denies sleep apnea, Denies snoring, Denies wheezing Gastrointestinal: Denies abdominal pain, Denies bloating, Denies BRBPR, Denies excessive gas, Denies heartburn, Denies hematemesis, Denies melena, Denies nausea Genitourinary: Denies dysuria, Denies nocturia Musculoskeletal: Denies myalgias Musculoskeletal: absent: ankle pain, ankle stiffness, ankle swelling, elbow pain, elbow stiffness, elbow swelling, foot pain, foot stiffness, foot swelling, hand pain, hand stiffness, hand swelling, hip pain, hip stiffness, hip swelling, knee pain, knee stiffness, knee swelling, shoulder pain, shoulder stiffness, shoulder swelling, wrist pain, wrist stiffness, wrist swelling Integumentary: Denies pruritus, Denies rash Neurological: Denies numbness, Denies weakness Psychiatric: Denies anxiety, Denies depression Endocrine: Denies fatigue, Denies weight change - Constitutional General appearance: patient in ICU bed, no acute distress, thin - EENT Eyes: anicteric sclerae, EOMI, PERRLA, no ptosis, no scleral icterus, normal appearance ENT: hearing grossly normal, NA/AT, normal oropharynx, no thrush Ears: bilateral: normal - Neck Neck: no lymphadenopathy, normal ROM, no rigidity, no stridor, no thyromegaly Carotids: bilateral: upstroke normal Thyroid: bilateral: normal size - Respiratory Respiratory: bilateral: diminished, negative: dullness, rales, rhonchi, wheezing, prolonged expiration, prolonged inspiration - Cardiovascular Rhythm: regular Heart sounds: normal: S1, S2 Abnormal Heart Sounds: no systolic murmur, no S3 Gallop - Gastrointestinal General gastrointestinal: normal bowel sounds, soft, no splenomegaly, no tenderness, no umbilical hernia, no ventral hernia - Integumentary Integumentary: normal, normal turgor - Neurologic Neurologic: CNII-XII intact - Musculoskeletal Musculoskeletal: gait normal, strength equal bilaterally - Psychiatric Psychiatric: A&O x's 3, appropriate affect, intact judgment & insight - Labs CBC & Chem 7: 11/20/18 04:29 11/19/18 04:25 Assessment and Plan Plan: 1. Inferior wall ST elevation NE status post left heart catheterization with PCI of the RCA with long Xience stent. Maintain the patient on aspirin 81 mg once every day, Plavix 75 mg once every day, metoprolol 12.5 mg orally twice every day Lipitor 80 mg orally once every day. Smoking cessation and counseling an increased risk of stent restenosis, patient stated that she has quit smoking at this point. 2. GERD. Continue patient on Protonix 40 mg once every day. 3. Graves' disease. Stable. 4. Right lung nodule. Patient had a computed tomography scan in February 2018. 5. Tobacco use and dependence. Smoking cessation and counseling an increased risk of CAD, CVA, and malignancy. 6. DVT prophylaxis. Heparin 5000 units subcutaneously every 8 hours. 7. GI prophylaxis. Continue PPI. Discharge plan: Home . Impression and plan of care have been directed as dictated by the signing physician. Mercedes Lacy nurse practitioner acting as scribe for signing physician.
[2018-11-20] MEDS: ATORVASTATIN 80 MG TAB PO SCH (20:03)
[2018-11-20] MEDS: ZOLPIDEM 5 MG TAB PO PRN (22:01)
[2018-11-21 05:19] LABS: Basophils % (A) 1 %; Eosinophils # (A) 0.2 k/uL (0-0.7); Eosinophils % (A) 5 %; HCT 39.1 % (34.0-46.0); HGB 12.9 gm/dL (11.4-16.0); Lymphocytes # (A) 1.9 k/uL (1.0-4.8); Lymphocytes % (A) 38 %; MCH 29.8 pg (25.0-35.0); MCHC 32.9 g/dL (31.0-37.0); MCV 90.6 fL (80.0-100.0); Mean Platelet Volume 7.2; Monocytes # (A) 0.4 k/uL (0-1.0); Monocytes % (A) 7 %; Neutrophils # (A) 2.3 k/uL (1.3-7.7); Neutrophils % (A) 46 %; Platelet Count 190 k/uL (150-450); RBC 4.32 m/uL (3.80-5.40); RDW 14.2 % (11.5-15.5); WBC 4.9 k/uL (3.8-10.6)
[2018-11-21 06:10] LABS: African American GFR (CKD) >90 (>60 ml/min/1.73 sqM); Anion Gap 7 mmol/L; Blood Urea Nitrogen 12 mg/dL (7-17); Calcium 9.1 mg/dL (8.4-10.2); Carbon Dioxide 25 mmol/L (22-30); Chloride 108 mmol/L (98-107); Glucose 89 mg/dL (74-99); Sodium 140 mmol/L (137-145)
[2018-11-21] MEDS: PANTOPRAZOLE 40 MG TABLET PO SCH (07:00)
[2018-11-21] MEDS: LORATADINE 10 MG TAB PO SCH (09:04)
[2018-11-21] MEDS: CLOPIDOGREL 75 MG TAB PO SCH (09:04)
[2018-11-21] MEDS: METOPROLOL TARTRATE 12.5 MG TAB PO SCH (09:04)
[2018-11-21] MEDS: ASPIRIN 81 MG PO SCH (09:04)
[2018-11-21 10:14] VITALS: RESP 16
--- NOTE | 2018-11-21 11:10 | PN ---
PROGRESS NOTE Princess is a 53-year-old lady that is admitted to hospital with acute inferior wall myocardial infarction. Underwent cardiac catheterization and angioplasty of right coronary artery. She is doing well and is eager to go home. She is free of cardiac symptoms. Patient is currently on aspirin Lipitor 80 q. daily, Plavix 75 q. daily, Lopressor 12.5 b.i.d. and sublingual nitroglycerin p.r.n. basis. Condition at the time of study, she is comfortable at rest. Vital signs are stable. There is no jugular venous distention. Chest exam reveals good air entry bilaterally. Heart exam reveals first and second heart sounds. No gallop. Exam of extremities did not reveal edema. Peripheral pulses are felt. ASSESSMENT: Acute inferior wall myocardial infarction, status post catheterization and angioplasty. PLAN: Patient is doing well. She is stable for discharge and she will follow up with me in a week's time. MMALEJOL / TIANN: [id number] /
[2018-11-21 12:23] VITALS: BP 91/58; PULSE 62; TEMP 98
--- NOTE | 2018-11-22 09:38 | P.DS ---
Providers Date of admission: 11/18/18 15:24 Expected date of discharge: 11/21/18 Attending physician: Latonya Corey Consults: 11/18/18 15:24 Consult Physician Urgent Consulting Provider: Aubrie Martinez Consult Reason/Comments: stemi Do you want consulting provider notified?: Yes 11/18/18 16:29 Consult Physician Routine Consulting Provider: [facility] Consult Reason/Comments: Post Interventional patient Do you want consulting provider notified?: Already Contacted Primary care physician: Joaquin Schwab [facility]: his is a 53-year-old female one of Dr. 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 shaky with increased upper and lower extremity shakiness her daughter came and picked her up to the hospital by the ventricle to the hospital she developed to have significant chest pain radiating to the back associated with increased shortness of breath, patient was found to have an ST elevation [place] she was taken to the mine laborer and underwent left heart catheterization with PCI of the RCA with a long stent to the distal RCA, subsequently patient was admitted to the intensive care unit for overnight and she was seen in the ICU feeling better denies any chest pain or shortness breath she has some right upper quadrant abdominal pain associated with nausea but no vomiting she was questioning whether or not she had a gallbladder stones. 11/20: Echocardiogram reveals EF of 50-55%, borderline concentric left ventricular hypertrophy, trace mitral regurgitation, mild tricuspid regurgitation, no pulmonary hypertension.patient has been afebrile, heart rate 76, blood pressure 94/53 pulse ox is 98% on room air. Triglycerides 179, cholesterol 193, LDL 121, HDL 36. Patient denies chest pain, shortness of breath. No events overnight. She has had a bowel movement. No new complaints. Plan for discharge home tomorrow. 11/21: Repeat lab work shows a CBC normal, BUN 12 and creatinine 0.63. Chloride 108, potassium 4.0. Patient denies any chest pain, shortness of breath, lightheadedness or dizziness. She is dressed and ready for discharge home today. The patient has been seen by cardiology and cleared for discharge. Patient will be discharged home today in stable condition. Discharge diagnoses: 1. Inferior wall ST elevation [place] status post left heart catheterization with PCI of the RCA with long Xience stent. 2. GERD. 3. Graves' disease. Stable. 4. Right lung nodule. Patient had a computed tomography scan in February 2018. 5. Tobacco use and dependence. Smoking cessation and counseling Discharge plan: Home Impression and plan of care have been directed as dictated by the signing physician. Mercedes Lacy nurse practitioner acting as scribe for signing physician. Patient Condition at Discharge: Good Plan - Discharge Summary Discharge Rx Participant: Yes New Discharge Prescriptions: New Aspirin 81 mg PO DAILY #30 chew Atorvastatin [Lipitor] 80 mg PO HS #30 tab Metoprolol Tartrate [Lopressor] 12.5 mg PO BID #60 tab Nitroglycerin Sl Tabs [Nitrostat] 0.4 mg SUBLINGUAL Q5M PRN #25 tab PRN Reason: Chest Pain Clopidogrel [Plavix] 75 mg PO DAILY #30 tab Continue Omeprazole [PriLOSEC] 20 mg PO DAILY PRN PRN Reason: Heartburn Cetirizine HCl [Zyrtec] 10 mg PO DAILY PRN PRN Reason: ALLERGIES Discontinued Ibuprofen [Motrin] 800 mg PO TID PRN PRN Reason: Pain Discharge Medication List Cetirizine HCl [Zyrtec] 10 mg PO DAILY PRN 11/18/18 [History] Omeprazole [PriLOSEC] 20 mg PO DAILY PRN 11/18/18 [History] Aspirin 81 mg PO DAILY #30 chew 11/21/18 [Rx] Atorvastatin [Lipitor] 80 mg PO HS #30 tab 11/21/18 [Rx] Clopidogrel [Plavix] 75 mg PO DAILY #30 tab 11/21/18 [Rx] Metoprolol Tartrate [Lopressor] 12.5 mg PO BID #60 tab 11/21/18 [Rx] Nitroglycerin Sl Tabs [Nitrostat] 0.4 mg SUBLINGUAL Q5M PRN #25 tab 11/21/18 [Rx] Follow up Appointment(s)/Referral(s): Joaquin Schwab DO [Primary Care Provider] - 1 Week (Keep current appointment of 12/02 at 4pm.) Elías Banegas MD [STAFF PHYSICIAN] - 1 Week (RN spoke with Cardiology office who stated they would inform the doctors that pt wished to follow up with Dr. Denny. Stated they would call pt at to make a follow up appt. They stated it may take several days for her to receive a phone call but they would siobhan it as time sensitive. [facility]: ) Patient Instructions/Handouts: Heart Attack (GEN), Chest Pain (GEN) Discharge Disposition: HOME SELF-CARE
== END 2018-11-21 14:47 | disposition home or self-care (01) | DRG 247 ==
LOC: EC 15:06 → 2SICU 15:24
PROVIDERS: ADMIT Internal Medicine; ATTEND Internal Medicine
PROC: 027034Z Dilation of Coronary Artery, One Artery with Drug-eluting Intraluminal Device, Percutaneous Approach (ICD-10-PCS; principal; 2018-11-18 15:27)
PROC: 4A023N7 Measurement of Cardiac Sampling and Pressure, Left Heart, Percutaneous Approach (ICD-10-PCS; 2018-11-18 15:27)
PROC: B2111ZZ Fluoroscopy of Multiple Coronary Arteries using Low Osmolar Contrast (ICD-10-PCS; 2018-11-18 15:27)
DX: I21.19 ST elevation (STEMI) myocardial infarction involving other coronary artery of inferior wall (principal); F17.200 Nicotine dependence, unspecified, uncomplicated; E05.00 Thyrotoxicosis with diffuse goiter without thyrotoxic crisis or storm; R91.1 Solitary pulmonary nodule; K21.9 Gastro-esophageal reflux disease without esophagitis; I25.10 Atherosclerotic heart disease of native coronary artery without angina pectoris; J44.9 Chronic obstructive pulmonary disease, unspecified; Z79.82 Long term (current) use of aspirin; Z79.899 Other long term (current) drug therapy; Z82.49 Family history of ischemic heart disease and other diseases of the circulatory system; Z90.710 Acquired absence of both cervix and uterus; Z88.2 Allergy status to sulfonamides; Z98.51 Tubal ligation status
CPT/HCPCS: 36415; 71045; 80048; 80053; 80061; 82550; 82553; 83690; 83880; 84484; 85025; 85049; 85610; 85730; 93306; 93458; 96365; 96372; 96375; 96376; 99291; C1874

== ENCOUNTER → 2019-04-17 | Outpatient (CLI) | payer BC ==
--- NOTE | 2019-04-17 11:04 | US ---
EXAMINATION TYPE: US gallbladder DATE OF EXAM: 04/17/2019 COMPARISON: US dated 09/21/2010 CLINICAL HISTORY: K80.20 GALLSTONES. Intermittent RUQ pain, gets worse after eating EXAM MEASUREMENTS: Liver Length: 15.8 cm Gallbladder Wall: 0.2 cm CBD: 0.6 cm Right Kidney: 9.7 x 4.1 x 5.1 cm Pancreas: visualized portions wnl, limited by overlying midline bowel gas Liver: 1.3 x 1.1 x 1.3cm hyperechoic lesion lateral right lobe, probable hemangioma that is similar in size (measuring slightly smaller) of the exam of 2010. A second possible hemangioma seen on the ex am of 2010 is not reproduced on today's exam. Gallbladder: wnl Evidence for sonographic Rojas's sign: yes CBD: wnl Right Kidney: 1.6 x 1.3 x 1.3cm hypoechoic area mid pole, appears as a renal sinus cysts. IMPRESSION: 1. Positive sonographic Rojas sign in the right upper quadrant however no sonographic evidence of ac ric cholecystitis is seen. Therefore HIDA scan could be considered to evaluate for biliary dyskinesia . 2. Hyperechoic hepatic lesion most commonly relates to a benign hemangioma with no interval growth fr 2010.
== END | disposition home or self-care (01) ==
LOC: RADUSWWP 10:15
PROVIDERS: ATTEND Surgery Plastic and Reconstructive Surgery
DX: K80.20 Calculus of gallbladder without cholecystitis without obstruction (principal)
CPT/HCPCS: 76705

== ENCOUNTER → 2020-03-09 | Outpatient (CLI) | payer BC ==
--- NOTE | 2020-03-09 16:15 | NM ---
EXAMINATION TYPE: NM hepatobiliary w EF DATE OF EXAM: 03/09/2020 COMPARISON: Ultrasound 04/17/2019 HISTORY: 54-year-old female with gallstones, K80.20 TECHNIQUE: After the intravenous administration of 4.2 mCi Tc 99m Mebrofenin hepatobiliary scintigrap hy is performed. Immediate images post injection. FINDINGS: There is satisfactory initial accumulation of tracer by the liver. The gallbladder is visualized wit hin 6 minutes. The small bowel activity is noted faintly within 20 minutes. At one hour 8 ounces of oral ensure plus is given to mimic CCK and gallbladder ejection fraction is calculated at 85 %, elev ated above the expected range. IMPRESSION: 1. No scintigraphic evidence for acute/chronic cholecystitis or biliary dyskinesia. 2. However, elevated gallbladder ejection fraction of 85% may be seen with gallbladder hyperkinesis.
== END | disposition home or self-care (01) ==
LOC: RADNMMAIN 12:57
PROVIDERS: ATTEND Surgery Plastic and Reconstructive Surgery
DX: K80.20 Calculus of gallbladder without cholecystitis without obstruction (principal)
CPT/HCPCS: 78226; A9537

== ENCOUNTER → 2021-03-02 | Outpatient (CLI) | payer BC ==
--- NOTE | 2021-03-04 14:16 | MM ---
Reason for exam: screening (asymptomatic). Last mammogram was performed 2 years and 6 months ago. History: Patient is postmenopausal. Family history of breast cancer in mother at age 38. Benign ultrasound-guided FNA biopsy of the right breast, March 15, 2007. Benign US right guided mammotome of the right breast, March 15, 2007. Benign US right core biopsy of the right breast, March 15, 2007. Benign US right guided mammotome of the right breast, September 15, 2005. Benign cyst aspiration of the right breast, August 05, 2004. Benign ultrasound-guided cyst aspiration of the right breast, August 05, 2004. Excisional biopsy of the right breast, 1995. Benign excisional biopsy of the right breast, 1993. Cyst aspiration of the right breast. Took hormonal contraceptives for 5 years. Physical Findings: A clinical breast exam by your physician is recommended on an annual basis and results should be correlated with mammographic findings. MG 3D Screening Mammo W/Cad Bilateral CC and MLO view(s) were taken. Prior study comparison: August 30, 2018, bilateral MG 3d screening mammo w/cad. January 30, 2017, bilateral MG 3d screening mammo w/cad. There are scattered fibroglandular densities. Finding: There is a 10 mm equal density (isodense), indistinct oval mass located 5-6 cm from the nipple in the middle, central position of the left breast, MLO 3/163 and CC 12/62. Previous mammotome biopsy in the right breast x 3. There is a chronic nodularity bilaterally. New finding and increase in size since August 30, 2018 and January 30, 2017. ASSESSMENT: Incomplete: need additional imaging evaluation, BI-RAD 0 RECOMMENDATION: Ultrasound of the left breast. [facility] will attempt to contact patient to return for ultrasound.
== END | disposition home or self-care (01) ==
LOC: RADMAMWWP 07:12
PROVIDERS: ATTEND Obstetrics & Gynecology
DX: Z12.31 Encounter for screening mammogram for malignant neoplasm of breast (principal); Z78.0 Asymptomatic menopausal state; Z80.3 Family history of malignant neoplasm of breast
CPT/HCPCS: 77063; 77067

== ENCOUNTER → 2021-03-16 | Outpatient (CLI) | payer BC ==
--- NOTE | 2021-03-16 18:01 | BD ---
EXAMINATION TYPE: Axial Bone Density DATE OF EXAM: 03/16/2021 COMPARISON: 01/30/2017 CLINICAL HISTORY: Postmenopausal screening Height: 62 IN Weight: 137 LBS FRAX RISK QUESTIONS: Secondary Osteoporosis: 2. Hyperthyroidism: YES Current Tobacco Use: YES RISK FACTORS HISTORY OF: Active: YES Diet low in dairy products/other sources of calcium: YES Postmenopausal woman: PARTIAL HYST AGE 46 Take estrogen and/or progesterone medications: NOT NOW How long: TOO CONTROL FOR 5 YEARS MEDICATIONS: Additional Medications: CALCIUM, VIT D, BABY ASPRIN, OMEPRAZOLE, LIPITOR, EXAM MEASUREMENTS: Bone mineral densitometry was performed using the [employer] System. Bone mineral density as measured about the Lumbar spine is: ----- L1-L4(G/cm2): 1.079 T Score Values are as follows: ----- L2: -1.5 ----- L3: -0.9 ----- L4: -0.4 ----- L1-L4: -0.8 Bone mineral density has: Decreased -0.7% since study of: 01/30/2017 Bone mineral density about the R hip (g/cm2): 0.795 Bone mineral density about the L hip (g/cm2): 0.850 T Score values are as follows: -----R Neck: -1.7 -----L Neck: -1.4 -----R Total: -1.5 -----L Total: -1.0 Bone mineral density has: Decreased -5.1% since study of: 01/30/2017 IMPRESSION: Osteopenia (T Score between -2.5 and -1). There is slightly increased risk of fracture and the patient may be considered for treatment. Re-Screen 2-5 years. NOTE: T-SCORE=SD OF THE YOUNG ADULT MEAN.
== END | disposition home or self-care (01) ==
LOC: RADBDWWP 09:26
PROVIDERS: ATTEND Obstetrics & Gynecology
DX: Z13.820 Encounter for screening for osteoporosis (principal); M85.89 Other specified disorders of bone density and structure, multiple sites; Z78.0 Asymptomatic menopausal state
CPT/HCPCS: 77080

== ENCOUNTER → 2021-03-17 | Outpatient (CLI) | payer BC ==
--- NOTE | 2021-03-17 14:32 | USB ---
Reason for exam: additional evaluation requested from abnormal screening. History: Patient is postmenopausal. Family history of breast cancer in mother at age 38. Benign ultrasound-guided FNA biopsy of the right breast, March 15, 2007. Benign US right guided mammotome of the right breast, March 15, 2007. Benign US right core biopsy of the right breast, March 15, 2007. Benign US right guided mammotome of the right breast, September 15, 2005. Benign cyst aspiration of the right breast, August 05, 2004. Benign ultrasound-guided cyst aspiration of the right breast, August 05, 2004. Excisional biopsy of the right breast, 1995. Benign excisional biopsy of the right breast, 1993. Cyst aspiration of the right breast. Took hormonal contraceptives for 5 years. Physical Findings: Nurse did not find any significant physical abnormalities on exam. US Breast Workup LT Left complete breast ultrasound includes all four quadrants, the retroareolar region and axilla. Finding demonstrates a ductal ectasia at 3 o'clock, 5 o'clock and posterior nipple, a 0.3 x 0.3 x 0.3cm oval, irregular lesion too small to characterize at 10 o'clock, a 0.4 x 0.4 x 0.2cm lymph node at 3 o'clock and a 1.1 x 1.1 x 0.8cm lymph node at the axilla. These results were verbally communicated with the patient and result sheet given to the patient on 03/17/21. ASSESSMENT: Incomplete: need additional imaging evaluation, BI-RAD 0 RECOMMENDATION: Special view mammogram of the left breast.
--- NOTE | 2021-03-17 14:35 | MM ---
Reason for exam: additional evaluation requested from abnormal screening. Last mammogram was performed less than 1 month ago. History: Patient is postmenopausal. Family history of breast cancer in mother at age 38. Benign ultrasound-guided FNA biopsy of the right breast, March 15, 2007. Benign US right guided mammotome of the right breast, March 15, 2007. Benign US right core biopsy of the right breast, March 15, 2007. Benign US right guided mammotome of the right breast, September 15, 2005. Benign cyst aspiration of the right breast, August 05, 2004. Benign ultrasound-guided cyst aspiration of the right breast, August 05, 2004. Excisional biopsy of the right breast, 1995. Benign excisional biopsy of the right breast, 1993. Cyst aspiration of the right breast. Took hormonal contraceptives for 5 years. MG 3D Work Up W/Cad LT Spot compression CC, spot compression MLO, and LM view(s) were taken of the left breast. Prior study comparison: March 02, 2021, bilateral MG 3d screening mammo w/cad. August 30, 2018, bilateral MG 3d screening mammo w/cad. The breast tissue is heterogeneously dense. This may lower the sensitivity of mammography. Enlarging nodular density 6cm from nipple central left breast. Not seen on ultrasound. These results were verbally communicated with the patient and result sheet given to the patient on 03/17/21. ASSESSMENT: Suspicious, BI-RAD 4 RECOMMENDATION: Stereotactic core biopsy of the left breast. Called Dr. Rivas's office with mammographic findings and has scheduled an appointment for the patient with Dr. Hodges. Biopsy scheduled for 04/11/21 at 8:00. PRELIMINARY REPORT CALLED AND FAXED TO DR. HODGES ON 03/17/21.
== END ==
LOC: RADUSWWP 07:08
PROVIDERS: ATTEND Obstetrics & Gynecology
DX: N60.42 Mammary duct ectasia of left breast (principal); Z80.3 Family history of malignant neoplasm of breast; R92.8 Other abnormal and inconclusive findings on diagnostic imaging of breast
CPT/HCPCS: 77061; 77065

== ENCOUNTER → 2021-04-11 | Day surgery (SDC) | payer BC ==
[2021-04-11 10:00] VITALS: PULSE 71; RESP 16
[2021-04-11 11:06] VITALS: BP 120/77; TEMP 98.1
--- NOTE | 2021-04-11 16:09 | MM ---
EXAMINATION TYPE: MG stereo VAD BX LT DATE OF EXAM: 04/11/2021 COMPARISON: 03/17/2021 mammogram CLINICAL HISTORY: Abnormal mammogram TECHNIQUE: Stereotactic guided core biopsy of left breast. FINDINGS: The procedure of stereotactic guided core biopsy was explained to the patient. Benefits, alternatives, and risks were discussed. An informed consent was then obtained. A timeout was performed. The shortness pathway for biopsy was chosen. Shortness pathway was inferior approach. The procedure and targeting was provided by radiology. A vacuum assisted biopsy gun was used to obtain 7 core samples. The patient tolerated the procedure well without any immediate complication. The patient was kept in the radiology department for short stay after the procedure and then discharged home in stable condition. Post procedure mammogram: The core marker is at the targeted mass. IMPRESSION: 1. Successful stereotactic core biopsy left breast mass. Recommendations: 1. Recommendations are pending pathology results. Pathology Results: Benign LEFT BREAST, CORE BIOPSY: Fibrocystic change with apocrine metaplasia, columnar cell change/hyperplasia, focal sclerosing adenosis and rare minute microcalcification (see note). Recommendation Follow up mammogram of the left breast in 6 months. SHERRON
== END ==
LOC: RADMAMWWP 09:32
PROVIDERS: ATTEND Surgery
DX: N60.82 Other benign mammary dysplasias of left breast (principal); N62 Hypertrophy of breast; N60.22 Fibroadenosis of left breast; R92.0 Mammographic microcalcification found on diagnostic imaging of breast; N60.12 Diffuse cystic mastopathy of left breast; R92.8 Other abnormal and inconclusive findings on diagnostic imaging of breast; Z88.2 Allergy status to sulfonamides
CPT/HCPCS: 88305; 19081; A4648; J2001

== ENCOUNTER → 2022-01-19 | Outpatient (CLI) | payer BC ==
[2022-01-19 14:38] LABS: Chol/HDL Ratio 4.15 Ratio; LDL Cholesterol,Calculated 60.6 mg/dL (0.0-131.0)
== END | disposition home or self-care (01) ==
LOC: LABWHC1 08:59
PROVIDERS: ATTEND Internal Medicine Interventional Cardiology
DX: E78.5 Hyperlipidemia, unspecified (principal)
CPT/HCPCS: 36415; 80061

== ENCOUNTER 2022-08-14 16:40 | Emergency (ER) | payer BC, OTHER ==
--- NOTE | 2022-08-14 17:06 | ED ---
General Adult HPI <Claire Kingston - Last Filed: 08/14/22 17:06> - General Source: patient, RN notes reviewed Mode of arrival: ambulatory Limitations: no limitations - History of Present Illness MD Complaint: Abdominal pain <Sierra Maldonado - Last Filed: 08/15/22 01:50> - General Chief complaint: Abdominal Pain Stated complaint: Gallbladder pain Time Seen by Provider: 08/14/22 17:06 - History of Present Illness Initial comments: 57-year-old female with no significant past medical history presents the emergency department with right upper quadrant abdominal pain that has been on and off for 1 week. She is complaining of associated symptoms of nausea however no vomiting at this time. (Claire Kingston) When I went to evaluate the patient, states that she had a HIDA scan in 2019 showing an overactive gallbladder. She had been seeing Dr. Souza, general surgery. A cholecystectomy was planned, however this was rescheduled several times because of Covid. Her symptoms then improved, and because she did not have any problems for a long period of time, she did not proceed with the surgery. Over the last week, and particularly over the last couple days, the right upper quadrant pain has been much more severe. She reports associated bloating and nausea. States that she called the general surgery office, however they could not get her an appointment until at least September, and she does not believe that she can wait this long. She has been taking [id number] Tylenol with no relief in symptoms. Denies any fevers, chills, sore throat, cough, dyspnea, chest pain, palpitations, vomiting, diarrhea, back pain, or headaches. (Sierra Maldonado) - Related Data Home Medications Medication Instructions Recorded Confirmed Cetirizine HCl [Zyrtec] 10 mg PO DAILY PRN 11/18/18 04/11/21 Omeprazole [PriLOSEC] 20 mg PO DAILY PRN 11/18/18 04/11/21 Atorvastatin [Lipitor] 40 mg PO DAILY 04/05/21 04/11/21 Cholecalciferol (Vitamin D3) 125 mcg PO DAILY 04/05/21 04/11/21 [Vitamin D3 (125 MCG = 5,000 IU)] Cyanocobalamin (Vitamin B-12) 5,000 mcg PO DAILY 04/05/21 04/11/21 [Vitamin B12] Multivitamins, Thera [Multivitamin 1 tab PO DAILY 04/05/21 04/11/21 (formulary)] Previous Rx's Medication Instructions Recorded Aspirin 81 mg PO DAILY #30 chew 11/21/18 Nitroglycerin Sl Tabs [Nitrostat] 0.4 mg SUBLINGUAL Q5M PRN #25 tab 11/21/18 Acetaminophen-Codeine 300-30mg 1 tab PO Q6H PRN 3 Days #12 tablet 08/14/22 [Tylenol w/codeine #3] Ibuprofen [Motrin] 800 mg PO Q8H PRN #12 tab 08/14/22 Ondansetron Odt [Zofran Odt] 4 mg PO Q8HR PRN #15 tab 08/14/22 Allergies Allergy/AdvReac Type Severity Reaction Status Date / Time Sulfa (Sulfonamide Allergy Rash/Hives Verified 08/14/22 17:06 Antibiotics) Review of Systems ROS Other: All systems not noted in ROS Statement are negative. <Claire Kingston - Last Filed: 08/14/22 17:06> ROS Other: All systems not noted in ROS Statement are negative. <Sierra Maldonado - Last Filed: 08/15/22 01:50> ROS Statement: Those systems with pertinent positive or pertinent negative responses have been documented in the HPI. Past Medical History Past Medical History: COPD, GERD/Reflux Additional Past Medical History / Comment(s): graves, pulmonary nodule. History of Any Multi-Drug Resistant Organisms: None Reported Past Surgical History: Bladder Surgery, Hysterectomy, Tubal Ligation Past Anesthesia/Blood Transfusion Reactions: No Reported Reaction Past Psychological History: No Psychological Hx Reported Past Alcohol Use History: None Reported Additional Past Alcohol Use History / Comment(s): quit smoking 2020 Past Drug Use History: None Reported - Past Family History Father Family Medical History: Coronary Artery Disease (CAD), Myocardial Infarction ([place]) Brother(s) Family Medical History: No Reported History Daughter(s) Family Medical History: No Reported History Son(s) Family Medical History: No Reported History <Claire Kingston - Last Filed: 08/14/22 17:06> General Exam <Claire Kingston - Last Filed: 08/14/22 17:06> Limitations: no limitations General appearance: alert, in no apparent distress Head exam: Present: atraumatic, normocephalic, normal inspection Respiratory exam: Present: normal lung sounds bilaterally. Absent: respiratory distress, wheezes, rales, rhonchi, stridor Cardiovascular Exam: Present: regular rate, normal rhythm, normal heart sounds. Absent: systolic murmur, diastolic murmur, rubs, gallop, clicks GI/Abdominal exam: Present: soft, tenderness (RUQ), normal bowel sounds. Absent: distended, guarding, rebound Neurological exam: Present: alert, oriented X3, CN II-XII intact Psychiatric exam: Present: normal affect, normal mood Skin exam: Present: warm, dry, intact, normal color. Absent: rash <Sierra Maldonado - Last Filed: 08/15/22 01:50> - General Exam Comments Initial Comments: Visual Physical Exam Vital signs reviewed General: Well-appearing, nontoxic, no acute distress. Head: Normocephalic, atraumatic Eyes: PERRLA, EOMI ENT: Airway patent Chest: Nonlabored breathing Skin: No visual rash, normal skin tone Neuro: Alert and oriented 3 Musculoskeletal: No gross abnormalities (Claire Kingston) Course Vital Signs 08/14/22 08/14/22 17:03 21:19 Temperature 98 F 97.7 F Pulse Rate 88 77 Respiratory 18 17 Rate Blood Pressure 141/81 131/73 O2 Sat by Pulse 96 95 Oximetry Medical Decision Making - Lab Data Result diagrams: 08/14/22 18:23 08/14/22 18:23 - Radiology Data Radiology results: report reviewed, image reviewed <Sierra Maldonado - Last Filed: 08/15/22 01:50> - Medical Decision Making This is a 57-year-old female who presents to the emergency department for abdominal pain. Was pt. sent in by a medical professional or institution? @ -No Did you speak to anyone other than the patient for history? @ -No Did you review nursing and triage notes? @ -Yes, and I agree, it is accurate with regards to the patient's symptoms. Were old charts reviewed? @ -HIDA scan from 03/09/2020 revealing a gallbladder EF of 85%. Differential Diagnosis? @ -Differential Abdominal Pain Women: Appendicitis, Cholecystitis, diverticulosis, ischemic bowel, pancreatitis, hepatitis, UTI, gastroenteritis, AAA, incarcerated hernia, bowel obstruction, constipation, inflammatory bowel, hepatitis, peptic ulcer disease, splenic infar ction, perforated viscus, vulvitis, ovarian torsion, PID, kidney stone, placenta abruption, this is not meant to be an all-inclusive list U/S interpreted by me (1pt. min.)? @ -Gallbladder ultrasound obtained. My interpretation identifies no evidence of gallbladder wall thickening or cholelithiasis. What testing was considered but not performed? (CT, X-rays, U/S, labs)? Why? @ -None What meds were considered but not given? Why? @ -None Did you discuss the management of the patient with other professionals? @ -Yes, case discussed with Dr. Bran, general surgery, who advised that the patient can see him in the office tomorrow. Did you reconcile home meds? @ -No Was smoking cessation discussed for >3mins.? @ -No Was critical care preformed (if so, how long)? @ -No Were there social determinants of health that impacted care today? How? (Homelessness, low income, unemployed, alcoholism, drug addiction, tr ansportation, low edu. Level, literacy, decrease access to med. care, ch[facility], rehab)? @ -No Was there de-escalation of care discussed even if they declined? (Discuss DNR or withdrawal of care, Hospice)? @ -No What co-morbidities impacted this encounter? (DM, HTN, Smoking, COPD, CAD, Cancer, CVA, Hep., AIDS, mental health diagnosis, sleep apnea, morbid obesity)? @ -GERD Was patient admitted / discharged? @ -Discharged. Lab work obtained revealing no acute findings. Gallbladder ultrasound also had no acute irregularities. HIDA scan from 03/09/2020 reviewed revealing a gallbladder ejection fraction of 85% suggesting a gallbladder hyperkinesis. Case discussed with Dr. Bran, general surgery, who advised that because blood work and imaging is unremarkable, she can follow up on an outpatient basis. He advised that she can see him in the office tomorrow. This was discussed with the patient, who is in agreement with this plan. Given the severity of her symptoms, she was given a prescription for a short course of Nageezi along with ibuprofen and Zofran with dosing instructions reviewed. Advised she take ibuprofen with Tylenol and take the Nageezi sparingly when her pain is the most severe and to avoid driving or operating machinery when taking this. She is also instructed to follow a low-fat diet for the meantime to reduce the likelihood of recurrent symptoms. She'll contact the general surgery office in the morning with plan to see them later that afternoon. Undiagnosed new problem with uncertain prognosis? @ -None Drug Therapy requiring intensive monitoring for toxicity (Heparin, Nitro, Insulin, Cardizem)? @ -None Were any procedures done? @ -None Diagnosis/symptom? @ -RUQ pain Acute, or Chronic, or Acute on Chronic? @ -Acute Uncomplicated (without systemic symptoms) or Complicated (systemic symptoms)? @ -Uncomplicated Side effects of treatment? @ -None Exacerbation, Progression, or Severe Exacerbation] @ -Not applicable Poses a threat to life or bodily function? @ -No Return precautions reviewed in depth, the patient is instructed to return to the emergency department with any new, worsening, or concerning symptoms. Patient verbalized understanding. This case was discussed in detail with the attending ED physician, Dr. Cantu. Presentation, findings, and treatment plan discussed in detail as well. (Sierra Maldonado) - Lab Data Lab Results 08/14/22 08/14/22 Range/Units 18:23 18:23 WBC 6.6 (3.8-10.6) k/uL RBC 4.15 (3.80-5.40) m/uL Hgb 12.5 (11.4-16.0) gm/dL Hct 37.6 (34.0-46.0) % MCV 90.6 (80.0-100.0) fL MCH 30.2 (25.0-35.0) pg MCHC 33.3 (31.0-37.0) g/dL RDW 12.3 (11.5-15.5) % Plt Count 253 (150-450) k/uL MPV 7.1 Neutrophils % 64 % Lymphocytes % 27 % Monocytes % 5 % Eosinophils % 2 % Basophils % 0 % Neutrophils # 4.2 (1.3-7.7) k/uL Lymphocytes # 1.8 (1.0-4.8) k/uL Monocytes # 0.3 (0-1.0) k/uL Eosinophils # 0.1 (0-0.7) k/uL Basophils # 0.0 (0-0.2) k/uL Sodium 138 (137-145) mmol/L Potassium 4.2 (3.5-5.1) mmol/L Chloride 105 (98-107) mmol/L Carbon Dioxide 29 (22-30) mmol/L Anion Gap 4 mmol/L BUN 17 (7-17) mg/dL Creatinine 1.05 H (0.52-1.04) mg/dL Est GFR (CKD-EPI)AfAm 68 (>60 ml/min/1.73 sqM) Est GFR (CKD-EPI)NonAf 59 (>60 ml/min/1.73 sqM) Glucose 82 (74-99) mg/dL Calcium 9.1 (8.4-10.2) mg/dL Total Bilirubin 0.2 (0.2-1.3) mg/dL AST 19 (14-36) U/L ALT 18 (4-34) U/L Alkaline Phosphatase 66 (38-126) U/L Total Protein 7.0 (6.3-8.2) g/dL Albumin 4.1 (3.5-5.0) g/dL Amylase 52 (30-110) U/L Lipase 82 (23-300) U/L Disposition <Claire Kingston - Last Filed: 08/14/22 17:06> Is patient prescribed a controlled substance at d/c from ED?: No <Sierra Maldonado - Last Filed: 08/15/22 01:50> Clinical Impression: Abnormal biliary HIDA scan, RUQ pain Disposition: HOME SELF-CARE Instructions (If sedation given, give patient instructions): Gallbladder Ejection Fraction (DC) Additional Instructions: Return to the emergency department with any new, worsening, or concerning symptoms. Alternate with ibuprofen and Tylenol as needed for pain relief. Take the Tylenol #3 sparingly when your pain is the most severe and do not drive or operate machinery when taking this. You can take the Zofran up to every 8 hours as needed for nausea and vomiting. Contact the general surgery office first thing tomorrow morning. Tell them that we spoke with Dr. Bran in the emerge ncy department and were told that he would see you in the office tomorrow afternoon. For the meantime, make sure that you are following a low-fat diet to reduce the likelihood of recurrent symptoms. Follow up with your primary care provider in 1-2 days. Prescriptions: Ibuprofen [Motrin] 800 mg PO Q8H PRN #12 tab PRN Reason: Pain Acetaminophen-Codeine 300-30mg [Tylenol w/codeine #3] 1 tab PO Q6H PRN 3 Days #12 tablet PRN Reason: Pain Ondansetron Odt [Zofran Odt] 4 mg PO Q8HR PRN #15 tab PRN Reason: Nausea And Vomiting Referrals: Joaquin Schwab DO [Primary Care Provider] - 1-2 days Parag Bran MD [STAFF PHYSICIAN] - 1-2 days
--- NOTE | 2022-08-14 17:52 | US ---
EXAMINATION TYPE: US gallbladder DATE OF EXAM: 08/14/2022 COMPARISON: 04/17/19 CLINICAL INDICATION: Female, 57 years old with history of gallstones; Pt states her last us was brody l, but the HIDA scan in 2019 showed the gallbladder wasn't functioning well TECHNIQUE: Multiple sonographic images of the right upper quadrant are obtained. FINDINGS: EXAM MEASUREMENTS: Liver Length: 16.3 cm. Normal less than 15.5 cm. Gallbladder Wall: 0.19 cm CBD: 0.42 cm Right Kidney: 10.1 x 4.8 x 4.5 cm TILE AND MARBLE INSTALLER NOTES: Pancreas: Parts visualized appear wnl, limited due to bowel gas Liver: Mildly enlarged. Gallbladder: wnl. Gallbladder appearance is within normal limits. Gallstones are not identified on t he current exam. Functional evaluation with HIDA scan can be performed as clinically indicated. Evidence for sonographic Rojas's sign: No CBD: wnl Right Kidney: Cyst seen in sup pole measuring 1.7 x 1.5 x 1.4cm IMPRESSION: 1. Mild hepatomegaly. 2. Upper pole right renal cyst. 3. No suspicious ultrasound abnormality of the gallbladder.
[2022-08-14 18:33] LABS: Basophils % (A) 0 %; Eosinophils # (A) 0.1 k/uL (0-0.7); Eosinophils % (A) 2 %; HCT 37.6 % (34.0-46.0); HGB 12.5 gm/dL (11.4-16.0); Lymphocytes # (A) 1.8 k/uL (1.0-4.8); Lymphocytes % (A) 27 %; MCH 30.2 pg (25.0-35.0); MCHC 33.3 g/dL (31.0-37.0); MCV 90.6 fL (80.0-100.0); Mean Platelet Volume 7.1; Monocytes # (A) 0.3 k/uL (0-1.0); Monocytes % (A) 5 %; Neutrophils # (A) 4.2 k/uL (1.3-7.7); Neutrophils % (A) 64 %; Platelet Count 253 k/uL (150-450); RBC 4.15 m/uL (3.80-5.40); RDW 12.3 % (11.5-15.5); WBC 6.6 k/uL (3.8-10.6)
[2022-08-14 18:56] LABS: Albumin 4.1 g/dL (3.5-5.0); Calcium 9.1 mg/dL (8.4-10.2); Potassium 4.2 mmol/L (3.5-5.1); Total Bilirubin 0.2 mg/dL (0.2-1.3)
[2022-08-14] MEDS ORDERED: ACETAMINOPHEN TAB 325 MG TAB PO STA (20:29)
[2022-08-14] MEDS ORDERED: ONDANSETRON ODT 4 MG TAB PO STA (20:29)
[2022-08-14] MEDS ORDERED: ONDANSETRON 4 MG ODT STARTER PACK 2 TAB BTL PO STA (21:02)
[2022-08-14] MEDS ORDERED: IBUPROFEN 600 MG STARTER PACK 4 TAB BTL PO STA (21:02)
[2022-08-14] MEDS ORDERED: ACET/COD 300 MG/30 MG STARTER PACK 6 TAB BTL PO STA (21:02)
[2022-08-14 21:28] VITALS: BP 131/73; PULSE 77; RESP 17; TEMP 97.7
== END 2022-08-14 21:20 | disposition home or self-care (01) ==
LOC: EC 16:40
DX: R94.8 Abnormal results of function studies of other organs and systems (principal); R10.11 Right upper quadrant pain; J44.9 Chronic obstructive pulmonary disease, unspecified; K21.9 Gastro-esophageal reflux disease without esophagitis; Z88.2 Allergy status to sulfonamides; Z79.899 Other long term (current) drug therapy
CPT/HCPCS: 36415; 80053; 82150; 83690; 85025; 76705; 99284; S0119

== ENCOUNTER 2022-08-21 08:54 | Day surgery (SDC) | payer BC ==
[~2022-08-21 08:54] MED LIST: ACETAMINOPHEN TAB 500 MG TAB PO PRN; DEXAMETHASONE SOD PHOSPHATE 4 MG/ML 1 ML VIAL IV ONE; HEPARIN SODIUM,PORCINE/PF 5,000 UNIT/0.5 ML SYRINGE SQ PRN; LACTATED RINGERS 1,000 ML IV SCH; LIDOCAINE 1% (10MG/ML) FOR IV START INTRADERMA PRN; MIDAZOLAM 2 MG/2 ML VIAL IV PRN; ONDANSETRON 4 MG/2 ML VIAL IVP ONE
[2022-08-21] MEDS ORDERED: INDOCYANINE GREEN 25 MG VIAL IV STA (10:01)
[2022-08-21] MEDS ORDERED: KETOROLAC 15 MG/ML 1 ML VIAL ONE (10:17)
[2022-08-21] MEDS ORDERED: LIDOCAINE 2% INJ 20 MG/ML (2 ML VIAL) ONE (10:17)
[2022-08-21] MEDS ORDERED: GLYCOPYRROLATE 0.2 MG/ML 2 ML VIAL ONE (10:17)
[2022-08-21] MEDS ORDERED: HYDROmorphone (PF) 1 MG/ML ONE (10:17)
[2022-08-21] MEDS ORDERED: PROPOFOL 10 MG/ML 20 ML VIAL IV ONE (10:17)
[2022-08-21] MEDS ORDERED: SUCCINYLCHOLINE CHLORIDE 200 MG/10 ML VIAL IV ONE (10:17)
[2022-08-21] MEDS ORDERED: MIDAZOLAM 2 MG/2 ML VIAL ONE (10:17)
[2022-08-21] MEDS ORDERED: ePHEDrine 50 MG/ML 1 ML VIAL ONE (10:17)
[2022-08-21] MEDS ORDERED: NEOSTIGMINE 1 MG/ML 10 ML VIAL ONE (10:17)
[2022-08-21] MEDS ORDERED: fentaNYL (PF) 50 MCG/ML 2 ML AMP ONE (10:17)
[2022-08-21] MEDS ORDERED: ROCURONIUM 10 MG/ML (5 ML VIAL) IV ONE (10:17)
[2022-08-21] MEDS ORDERED: BUPIVACAIN-EPI 0.25%-1:200,000 30 ML VIAL SQ ONE ×2 (10:18→10:46)
[2022-08-21] MEDS ORDERED: LACTATED RINGERS 1,000 ML IV ONE (11:05)
[2022-08-21 11:33] VITALS: TEMP 97.4
--- NOTE | 2022-08-21 11:37 | P.OP ---
Date of Procedure: 08/21/22 Preoperative Diagnosis: Cholecystitis Postoperative Diagnosis: Cholecystitis Procedure(s) Performed: Laparoscopic cholecystectomy Anesthesia: IRINA Surgeon: Parag Bran Estimated Blood Loss (ml): 5 Pathology: other (Gallbladder) Condition: stable Disposition: PACU Description of Procedure: The patient was placed on the operating table. The patient received a general endotracheal tube anesthesia. The patients abdomen was prepped and draped in the usual sterile fashion. Through an infraumbilical stab incision, the fascia of the anterior abdominal wall was grasped with a pair of Kochers and then the Veress needle was placed in the peritoneal cavity. Position of the Veress needle was confirmed with positive drop test. The abdomen was then insufflated. After adequate insufflation, the 10 mm trocar was placed in the peritoneal cavity. Following this the laparoscope was placed in the peritoneal cavity. The patient was placed in the head-up, right side up position and then a 5 mm trocar was placed in the right lateral and right subcostal position under direct visualization. A 8 mm trocar was placed in the epigastric position. The gallbladder was grasped in the fundus and infundibulum. Traction on the gallbladder was placed in the lateral and the cephalad positions. The triangle of Calot was visualized.. The cystic duct was bluntly dissected until the union of the cystic duct and common bile duct was seen. A critical view of safety was achieved. The cystic duct was then divided and sealed with the Harmonic scissors. A PDS Endoloop was then placed throughout the cystic duct stump. The cystic artery divided and sealed with the Harmonic scissors. The gallbladder was then removed from the liver bed using Harmonic scissors. The gallbladder was then extracted through the epigastric port site. Operative field was checked for any bleeding spots and Harmonic scissors was used to coagulate the liver bed. The abdomen was irrigated. The trocars were removed. The skin was closed using interrupted 3-0 Vicryl suture. Dermabond dressing were applied. The patient tolerated the procedure well.
[2022-08-21] MEDS: HYDROmorphone 0.5 MG/0.5 ML SYRINGE IVP PRN ×3 (11:58→12:07)
[2022-08-21 12:45] VITALS: RESP 18
[2022-08-21 12:57] VITALS: BP 126/71; PULSE 89
== END 2022-08-21 13:21 | disposition home or self-care (01) ==
LOC: OR 08:54
PROVIDERS: ATTEND Surgery
DX: K81.1 Chronic cholecystitis (principal); I25.10 Atherosclerotic heart disease of native coronary artery without angina pectoris; Z95.5 Presence of coronary angioplasty implant and graft; E78.5 Hyperlipidemia, unspecified; K21.9 Gastro-esophageal reflux disease without esophagitis; Z79.82 Long term (current) use of aspirin; Z79.899 Other long term (current) drug therapy
CPT/HCPCS: 47562; 88304; J2250; J0330; J1100; J2710; J0690; J2405; J3010; J1170 ×2; J1885; J2704; J1644; J2001

== ENCOUNTER → 2022-10-09 | Outpatient (CLI) | payer BC ==
--- NOTE | 2022-10-09 11:27 | MM ---
Reason for Exam: Additional evaluation requested from abnormal screening. Last mammogram was performed 1 year(s) and 7 month(s) ago. Patient History: Menarche at age 13. First Full-Term at age 20. Hysterectomy at age 48. Postmenopausal. Patient used Hormonal Contraceptives for 5 years. 1993, Benign Excisional Biopsy on the right side. Cyst Aspiration on the Right side. 1995, Excisional Biopsy on the Right side. 04/11/2021, Benign Core Biopsy on the left side. 03/15/2007, Benign Ultrasound-Guided FNA Biopsy on the right side. 03/15/2007, Benign Core Biopsy on the right side. 03/15/2007, Benign Core Biopsy on the right side. 09/15/2005, Benign Core Biopsy on the right side. 08/05/2004, Benign Ultrasound-Guided Cyst Aspiration on the right side. 08/05/2004, Benign Cyst Aspiration on the right side. Mother had breast cancer, age 38. Risk Values: Saba 5 year model risk: 3.7%. NCI Lifetime model risk: 20.9%. Prior Study Comparison: 09/16/2014 Bilateral Screening Mammogram, [facility]. 10/25/2015 Bilateral Screening Mammogram, [facility]. 01/30/2017 Bilateral Screening Mammogram, [facility]. 08/30/2018 Bilateral Screening Mammogram, [facility]. 03/02/2021 Bilateral Screening Mammogram, [facility]. 03/17/2021 Left Diagnostic Ultrasound, [facility]. 03/17/2021 Left Diagnostic Mammogram, [facility]. Tissue Density: There are scattered fibroglandular densities. Findings: Analyzed By CAD. Postbiopsy changes left breast as well as the right breast at multiple locations. Chronic nodularity right breast. No suspicious calcifications or masses. Overall Assessment: Incomplete: need additional imaging evaluation, BI-RAD 0 Management: Diagnostic Breast Ultrasound of the left breast. . Results were given to the patient verbally at the time of exam. Patient should continue monthly self-breast exams. A clinical breast exam by your physician is recommended on an annual basis. This exam should not preclude additional follow-up of suspicious palpable abnormalities. Note on Saba scores and lifetime risk: 1. A Saba score greater than 3% is considered moderate risk. If this is the case, consider specialist referral to assess eligibility for a risk reducing agent. 2. If overall lifetime risk for the development of breast cancer is 20% or higher, the patient may qualify for future screening with alternating mammogram and breast MRI. Electronically signed and approved by: Hector Kumar M.D. Radiologis
== END | disposition home or self-care (01) ==
LOC: RADMAMWWP 11:01
PROVIDERS: ATTEND Surgery
DX: R92.8 Other abnormal and inconclusive findings on diagnostic imaging of breast (principal); Z78.0 Asymptomatic menopausal state; Z80.3 Family history of malignant neoplasm of breast
CPT/HCPCS: 77062; 77066

== ENCOUNTER → 2022-10-11 | Outpatient (CLI) | payer BC ==
--- NOTE | 2022-10-11 16:44 | USB ---
Patient History: Menarche at age 13. First Full-Term at age 20. Hysterectomy at age 48. Postmenopausal. Patient used Hormonal Contraceptives for 5 years. 1993, Benign Excisional Biopsy on the right side. Cyst Aspiration on the Right side. 1995, Excisional Biopsy on the Right side. 04/11/2021, Benign Core Biopsy on the left side. 03/15/2007, Benign Ultrasound-Guided FNA Biopsy on the right side. 03/15/2007, Benign Core Biopsy on the right side. 03/15/2007, Benign Core Biopsy on the right side. 09/15/2005, Benign Core Biopsy on the right side. 08/05/2004, Benign Ultrasound-Guided Cyst Aspiration on the right side. 08/05/2004, Benign Cyst Aspiration on the right side. Mother had breast cancer, age 38. Risk Values: Saba 5 year model risk: 3.7%. NCI Lifetime model risk: 20.9%. Prior Study Comparison: 03/02/2021 Bilateral Screening Mammogram, [facility]. 03/17/2021 Left Diagnostic Ultrasound, [facility]. 03/17/2021 Left Diagnostic Mammogram, [facility]. 10/09/2022 Bilateral MG 3D diag mammo w/cad FAITH, [facility]. Findings: The whole breast of the left breast, the axilla of the left breast and the retroareolar of the left breast were scanned. No solid or cystic masses are identified. There is a normal-appearing lymph node in the left axillary tail. Couple of benign-appearing ducts are present. A small benign-appearing intramammary lymph node at the 2:00 position 5 cm the nipple is noted. No suspicious shadowing lesions are evident. Overall Assessment: Benign, BI-RAD 2 Management: Screening Mammogram of both breasts in 1 year. A clinical breast exam by your physician is recommended on an annual basis and results should be correlated with mammographic findings. This exam should not preclude additional follow-up of suspicious palpable abnormalities. Results were given to the patient verbally at the time of exam. Electronically signed and approved by: Reagan Torres D.O. Radiologis
== END | disposition home or self-care (01) ==
LOC: RADUSWWP 15:05
PROVIDERS: ATTEND Surgery
DX: R92.8 Other abnormal and inconclusive findings on diagnostic imaging of breast (principal); Z78.0 Asymptomatic menopausal state; Z80.3 Family history of malignant neoplasm of breast

== ENCOUNTER → 2024-11-24 | Outpatient (CLI) | payer BC ==
--- NOTE | 2024-11-25 07:43 | MM ---
Reason for Exam: Screening (asymptomatic). Last mammogram was performed 2 year(s) and 1 month(s) ago. Patient History: Menarche at age 13. First Full-Term at age 20. Hysterectomy at age 48. Postmenopausal. Patient used Hormonal Contraceptives for 5 years. 1993, Benign Excisional Biopsy on the right side. Cyst Aspiration on the Right side. 1995, Excisional Biopsy on the Right side. 04/11/2021, Benign Core Biopsy on the left side. 03/15/2007, Benign Ultrasound-Guided FNA Biopsy on the right side. 03/15/2007, Benign Core Biopsy on the right side. 03/15/2007, Benign Core Biopsy on the right side. 09/15/2005, Benign Core Biopsy on the right side. 08/05/2004, Benign Ultrasound-Guided Cyst Aspiration on the right side. 08/05/2004, Benign Cyst Aspiration on the right side. Mother had breast cancer, age 38. Risk Values: Elizabeth 5 year model risk: 4.0%. NCI Lifetime model risk: 20.1%. Prior Study Comparison: 03/02/2021 Bilateral Screening Mammogram, [facility]. 03/17/2021 Left Diagnostic Mammogram, [facility]. 10/09/2022 Bilateral MG 3D diag mammo w/cad FAITH, [facility]. Tissue Density: There are scattered areas of fibroglandular density. Findings: Analyzed By CAD. Chronic bilateral nodularity. 3 microclips right breast and one microclip left breast from prior biopsies. There is no suspicious group of microcalcifications or new suspicious mass in either breast. Overall Assessment: Benign, BI-RAD 2 Management: Screening Mammogram of both breasts in 1 year. SEE NOTE BELOW IN REGARDS TO THE PATIENT'S INCREASED 5 YEAR ELIZABETH SCORE AND INCREASED LIFETIME RISK SCORE. Patient should continue monthly self-breast exams. A clinical breast exam by your physician is recommended on an annual basis. This exam should not preclude additional follow-up of suspicious palpable abnormalities. Note on Elizabeth scores and lifetime risk: 1. A Elizabeth score greater than 3% is considered moderate risk. If this is the case, consider specialist referral to assess eligibility for a risk reducing agent. 2. If overall lifetime risk for the development of breast cancer is 20% or higher, the patient may qualify for future screening with alternating mammogram and breast MRI. [facility], , 11/25/2024 7:40 AM. Electronically signed and approved by: Minor Hughes M.D. Radiologist
== END | disposition home or self-care (01) ==
LOC: RADMAMWWP 16:23
PROVIDERS: ATTEND Family Medicine
DX: Z12.31 Encounter for screening mammogram for malignant neoplasm of breast (principal); R92.323 Mammographic fibroglandular density, bilateral breasts; Z80.3 Family history of malignant neoplasm of breast; Z78.0 Asymptomatic menopausal state; Z92.0 Personal history of contraception
CPT/HCPCS: 77063; 77067

== ENCOUNTER → 2024-11-24 | Outpatient (CLI) | payer BC ==
[2024-11-24 19:57] LABS: HCT 37.3 % (37.2-46.3); HGB 12.4 g/dL (12.0-15.0); MCH 29.4 pg (27.0-32.0); MCHC 33.2 g/dL (32.0-37.0); MCV 88.4 FL (80.0-97.0); NRBC Per 100 WBC 0 X 10*3/uL (0.00-0.01); Platelet Count 283 X 10*3/uL (140-440); RBC 4.22 X 10*6/uL (4.10-5.20); RDW 12.8 % (11.5-14.5); WBC 8.02 X 10*3/uL (4.50-10.00)
[2024-11-24 20:19] LABS: Anion Gap 10.40 mmol/L (4.00-12.00); Blood Urea Nitrogen 11.3 mg/dL (9.0-27.0); Carbon Dioxide 24.6 mmol/L (21.6-31.8); Chloride 103 mmol/L (96-109); Potassium 4.0 mmol/L (3.5-5.5); Sodium 138 mmol/L (135-145)
== END | disposition home or self-care (01) ==
LOC: LABPAT 16:16
PROVIDERS: ATTEND Internal Medicine Interventional Cardiology
DX: Z01.812 Encounter for preprocedural laboratory examination (principal); I25.10 Atherosclerotic heart disease of native coronary artery without angina pectoris
CPT/HCPCS: 80051; 82565; 84520; 85027

== ENCOUNTER 2024-11-26 08:41 | Day surgery (SDC) | payer BC ==
[~2024-11-26 08:41] MED LIST changes: -ACETAMINOPHEN TAB 500 MG TAB PO PRN; +ALPRAZolam 0.25 MG TAB PO PRN; +ALPRAZolam 0.5 MG TAB PO PRN; -DEXAMETHASONE SOD PHOSPHATE 4 MG/ML 1 ML VIAL IV ONE; -HEPARIN SODIUM,PORCINE/PF 5,000 UNIT/0.5 ML SYRINGE SQ PRN; -LACTATED RINGERS 1,000 ML IV SCH; -LIDOCAINE 1% (10MG/ML) FOR IV START INTRADERMA PRN; -MIDAZOLAM 2 MG/2 ML VIAL IV PRN; +NITROGLYCERIN SL TABS 0.4 MG TAB SUBLINGUAL PRN; -ONDANSETRON 4 MG/2 ML VIAL IVP ONE
[2024-11-26] MEDS: SODIUM CHLORIDE 0.9% 1,000 ML in EMPTY BAG 1 BAG IV SCH (09:45)
[2024-11-26] MEDS: ASPIRIN 325 MG TAB PO STA (09:46)
[2024-11-26] MEDS: MIDAZOLAM 2 MG/2 ML VIAL IVP ONE ×2 (13:00→13:31)
[2024-11-26] MEDS: fentaNYL (PF) 50 MCG/ML 2 ML AMP IVP ONE ×2 (13:00→13:31)
[2024-11-26] MEDS: VERAPAMIL SYRINGE (5 MG/10 ML) INTRAARTER ONE (13:06)
[2024-11-26] MEDS: LIDOCAINE 1% INJ 10MG/ML (20 ML MDV) SQ ONE (13:06)
[2024-11-26] MEDS: HEPARIN SODIUM 1,000 UN/ML (10ML VL) IVP ONE ×2 (13:12→13:26)
[2024-11-26] MEDS: PRASUGREL 10 MG TAB PO ONE (13:18)
[2024-11-26] MEDS: HEPARIN SODIUM,PORCINE (1 ML) 2,500 UNIT in SODIUM CHLORIDE 0.9% 250 ML IRRIGATION PRN (13:24)
[2024-11-26] MEDS: HEPARIN SODIUM,PORCINE 10,000 UNIT in SODIUM CHLORIDE 0.9% 1,000 ML IRRIGATION PRN (13:24)
[2024-11-26] MEDS: IV FLUID CONTINUATION 1,000 ML IV ONE (13:25)
[2024-11-26] MEDS: PHENYLEPHRINE-0.9% NACL SYG 1,000 MCG/10 ML SYRINGE IVP ONE (13:34)
[2024-11-26] MEDS: ATROPINE SULFATE 0.1 MG/ML 10ML SYRINGE IVP ONE (13:35)
[2024-11-26] MEDS: HYDROmorphone 0.5 MG/0.5 ML SYRINGE IVP ONE (13:39)
[2024-11-26] MEDS: NITROGLYCERIN 1000MCG/10ML SYRINGE INTRACORON ONE (13:42)
[2024-11-26] MEDS: fentaNYL (PF) 50 MCG/1 ML VIAL IVP ONE (13:46)
[2024-11-26] MEDS: IOPAMIDOL-370 100ML BTL INJ ONE ×2 (13:55)
[2024-11-26] MEDS ORDERED: LORATADINE 10 MG TAB PO PRN (14:07)
[2024-11-26] MEDS ORDERED: FUROSEMIDE 20 MG TAB PO PRN (14:07)
--- NOTE | 2024-11-26 14:09 | P.PCN ---
Date of Procedure: 11/26/24 Operative Findings: CARDIAC CATHETERIZATION AND PERCUTANEOUS CORONARY INTERVENTION PERFORMING PHYSICIAN: Dany Denny MD, [facility] PROCEDURE PERFORMED: 1. Selective right and left coronary angiogram and left heart catheterization 2. Successful stenting of mid and proximal RCA using 3.5 x 28 and 4.5 x 28 X ience AIDEN with an excellent angiographic results 3. Adjunctive use of IVUS 4. Ultrasound-guided access of the right radial artery INDICATION: Symptomatic 59-year-old female patient with known CAD and prior stenting of the RCA with symptoms concerning for angina COMPLICATION: None APPROACH: Right radial artery LEVEL OF SEDATION: Moderate with the sedation time off 45 minutes PROCEDURE DESCRIPTION: After obtaining informed consent the patient was brought to the cardiac Button Station Worker. The right radial artery was cannulated using micropuncture technique under ultrasound guidance a micropuncture wire passed easily then I placed a 6 Mont[place]grin 11 cm sheath at the right radial artery and give the patient 2 mg of verapamil intra-arterial and 5000 units of heparin intravenous. Selective right and left coronary angiogram and left heart catheterization performed using JR4 and JL 3.5 catheters. Subsequently I decided to do intervention on the RCA. Anticoagulation continued using heparin with continuous ACT monitoring and subsequently I did engage the RCA using an AL 0.75 guiding catheter. I did wired the RCA using a run-through wire. IVUS was performed and showed a diameter around 3.5 mm of the mid RCA. The artery was not very calcified. Predilatation was performed using 3.5 mm score flex balloon before I deployed a 3.5 x 28 mm stent postdilated using 4 mm NC balloon. An angiogram showed an area of concern in the very proximal RCA. The area did not improve after IC nitroglycerin and the patient was symptomatic with low blood pressure and bradycardia. I decided to stent that segment. I deployed 4.5 x 28 mm Xience AIDEN postdilated using 5 mm NC balloon. Final angiogram and IVUS showed good results and the procedure was completed with no complication SELECTIVE CORONARY ANGIOGRAM: The right coronary artery: Large caliber vessel and dominant vessel with patent stent in the distal RCA and severe disease involving the mid RCA Left main: Is angiographically normal The left circumflex: Large caliber vessel with no evidence of high-grade stenosis The left anterior descending artery: Large and tortuous vessel with no evidence of high-grade stenosis as we HEMODYNAMICS: The LVEDP was 12 mmHg with no significant gradient across the aortic valve CONCLUSION: 1. Patent stent in the distal RCA with severe disease involving the mid and proximal RCA. I did successful PCI of the mid and proximal RCA 2. Mild disease involving the left coronary system 3. Normal left-sided filling POSTPROCEDURE MANAGEMENT: 1. Dual antiplatelet therapy using aspirin and Effient for 6 month 2. Aggressive cholesterol control 3. Follow-up with the patient
[2024-11-26] MEDS ORDERED: RX INFO: IV CONTRAST WAS GIVEN 1 EACH MISC MISCELLANE PRN (14:10)
[2024-11-26] MEDS ORDERED: ATROPINE SULFATE 0.1 MG/ML 10ML SYRINGE IV PRN (14:10)
[2024-11-26] MEDS ORDERED: MAG HYDROX/AL HYDROX/SIMETH 30 ML CUP PO PRN (14:10)
[2024-11-26] MEDS ORDERED: ZOLPIDEM 5 MG TAB PO PRN (14:10)
[2024-11-26] MEDS: ACETAMINOPHEN TAB 500 MG TAB PO STA (14:59)
[2024-11-26] MEDS: ACETAMINOPHEN TAB 325 MG TAB PO PRN (17:55)
[2024-11-26] MEDS: CALCIUM CARBONATE 500 MG CHEWABLE PO SCH (21:51)
[2024-11-26] MEDS: SYMBICORT 160-4.5 MCG INHALER INHALATION SCH (22:10)
[2024-11-27 06:41] LABS: Basophils # (A) 0.04 10*3/uL (0.00-0.10); Basophils % (A) 0.4 %; Eosinophils # (A) 0.12 10*3/uL (0.04-0.35); Eosinophils % (A) 1.2 %; HCT 35.1 % (37.2-46.3); HGB 12.1 g/dL (12.0-15.0); Lymphocytes # (A) 1.93 10*3/uL (0.90-5.00); Lymphocytes % (A) 19.7 %; MCH 30.0 pg (27.0-32.0); MCHC 34.5 g/dL (32.0-37.0); MCV 87.1 fL (80.0-97.0); Monocytes # (A) 0.72 10*3/uL (0.20-1.00); Monocytes % (A) 7.3 %; Neutrophils # (A) 6.98 10*3/uL (1.80-7.70); Neutrophils % (A) 71.1 %; Platelet Count 261 10*3/uL (140-440); RBC 4.03 10*6/uL (4.10-5.20); RDW 12.7 % (11.5-14.5); WBC 9.82 10*3/uL (4.50-10.00)
[2024-11-27 07:11] LABS: African American GFR (CKD) >90 (>60 ml/min/1.73 sqM); Anion Gap 9 mmol/L; Blood Urea Nitrogen 10 mg/dL (7-17); Calcium 8.8 mg/dL (8.4-10.2); Carbon Dioxide 25 mmol/L (22-30); Chloride 104 mmol/L (98-107); Glucose 101 mg/dL (74-99); Non-African American GFR(CKD) >90 (>60 ml/min/1.73 sqM); Potassium 3.7 mmol/L (3.5-5.1); Sodium 138 mmol/L (137-145)
[2024-11-27] MEDS: TIOTROPIUM 2.5 MCG INHALER INHALATION SCH (07:35)
[2024-11-27 07:57] VITALS: BP 159/81; PULSE 84; RESP 18; TEMP 97.7
[2024-11-27] MEDS ORDERED: NON FORMULARY DRUG (Turmeric Root Extract [Turmeric Curcumin] 500 MG Capsule) PO SCH (09:00)
[2024-11-27] MEDS: IBUPROFEN 800 MG TAB PO PRN (09:16)
[2024-11-27] MEDS: ASPIRIN 81 MG PO SCH (09:17)
[2024-11-27] MEDS: CHOLECALCIFEROL 125 MCG (5000 IU) TABLET PO SCH (09:17)
[2024-11-27] MEDS: EZETIMIBE 10 MG TAB PO SCH (09:17)
[2024-11-27] MEDS: PANTOPRAZOLE 40 MG TABLET PO SCH (09:17)
[2024-11-27] MEDS: PRASUGREL 10 MG TAB PO SCH (09:17)
[2024-11-27] MEDS: ASCORBIC ACID 500 MG TAB PO SCH (09:17)
[2024-11-27 12:52] VITALS: BMI 29.4
== END 2024-11-27 14:19 | disposition home or self-care (01) ==
LOC: CATHCVL 08:41 → 6NMEDSUR 13:50 → CATHCVL 11-27 14:19
PROVIDERS: ATTEND Internal Medicine Interventional Cardiology
DX: I25.10 Atherosclerotic heart disease of native coronary artery without angina pectoris (principal); E78.5 Hyperlipidemia, unspecified; I10 Essential (primary) hypertension; Z87.891 Personal history of nicotine dependence; Z79.82 Long term (current) use of aspirin; Z79.899 Other long term (current) drug therapy
CPT/HCPCS: 99152; 99153; 92978; 93458; 80048; 85025; C9600; C1887; C1769 ×2; C1894; C1874 ×2; C1725 ×3; C1753; J2250; J1644 ×3; J2003; J0461; J3010 ×2; J1171; Q9967; J2371; J2305